=== PATIENT | male | born 1960 | race Caucasian/White ===

== ENCOUNTER 2021-11-06 15:25 | Outpatient (CLI) | payer BC, SELFPAY ==
--- NOTE | 2021-11-06 | USCV_ITS ---
Dong Diaz Age: 61 Gender: M : 1960 Exam Date: 11/06/2021 15:46 Ordering Phys: Ale Ferro Technologist: Apollo Kee [place] [facility] [place]: Chest pain BP: 110 / 70 HR: 84 Rhythm: Sinus Technical Quality: Adequate MEASUREMENTS (Male / Female) Normal Values 2D ECHO LV Diastolic Diameter PLAX 4.9 cm 4.2 - 5.9 / 3.9 - 5.3 cm LV Systolic Diameter PLAX 3.1 cm IVS Diastolic Thickness 1.1 cm 0.6 - 1.0 / 0.6 - 0.9 cm IVS Systolic Thickness 1.5 cm LVPW Diastolic Thickness 1.2 cm 0.6 - 1.0 / 0.6 - 0.9 cm LVPW Systolic Thickness 1.3 cm LVOT Diameter 2.1 cm LV Ejection Fraction 2D Teich 66.5 % LV Ejection Fraction MOD 2C 57.4 % LV Ejection Fraction 2C AL 57.8 % LA Diameter 4.6 cm LA Width 5.9 cm LA Height 6.0 cm RA Width 4.6 cm RA Height 5.5 cm Aorta at Sinotubular Diameter 2.3 cm M-MODE Aortic Annulus Diameter 3.0 cm LA Ao Ratio MM 1.7 DOPPLER AV Peak Velocity 246.0 cm/s LVOT Peak Velocity 124.7 cm/s AV Area Cont Eq vti 1.8 cm squared AV Area Cont Eq pk 1.8 cm squared MV Area PHT 5.0 cm squared Mitral E to A Ratio 0.9 MV E' Velocity 65.0 cm/s Mitral E to MV E' Ratio 14.6 Mitral E to LV E' Lateral Ratio 15.7 Mitral E to LV E' Septal Ratio 13.6 TR Peak Velocity 158.0 cm/s TR Peak Gradient 10.0 mmHg TV Peak E Velocity 106.0 cm/s Right Atrial Pressure 3.0 mmHg Pulmonary Artery Systolic Pressu 13.0 mmHg FINDINGS Left Ventricle Normal left ventricular cavity size. Normal left ventricular wall thickness. Normal left ventricular systolic function. Left ventricular ejection fraction is estimated at 60-65 %. No regional wall motion abnormalities. Grade II diastolic dysfunction, moderately elevated filling pressures. Right Ventricle Normal right ventricular size and systolic function. Right ventricular systolic pressure 13 mmHg. Right Atrium Normal right atrial size. Left Atrium Mildly increased left atrial size. Mitral Valve Moderate mitral annular calcification. No mitral valve stenosis. No mitral valve regurgitation. Aortic Valve Moderately thickened and calcified aortic valve. Mild aortic valve stenosis peak velocity 2.7 m/s, peak gradient 28 mmHg, mean gradient 15 mmHg, EILEEN 1.8 cm squared. Trace aortic valve regurgitation. Tricuspid Valve Thickened tricuspid valve. Tricuspid valve stenosis. Trace tricuspid valve regurgitation. Pulmonic Valve Structurally normal pulmonic valve. No pulmonary valve stenosis. Trace pulmonary valve regurgitation. Pericardium No pericardial effusion. Aorta Normal-sized aortic root. Plaque seen in the aorta. CONCLUSIONS 1. Normal left ventricular cavity size, wall thickness and systolic function. Left ventricular ejection fraction is estimated at 60-65 %. No regional wall motion abnormalities. Grade II diastolic dysfunction, moderately elevated filling pressures. 2. Normal right ventricular size and systolic function. 3. Mild aortic valve stenosis peak velocity 2.7 m/s, peak gradient 28 mmHg, mean gradient 15 mmHg, EILEEN 1.8 cm squared. 4. Trace aortic valve regurgitation. 5. No prior similar studies to compare. Lolly Rizzo MD (Electronically Signed) Final Date: 08 Nov 2021 18:09 S
== END 2021-11-06 15:26 | disposition home or self-care (01) ==
LOC: RAD 15:32
PROVIDERS: PCP Nurse Practitioner Family; Visit Provider Registered Nurse
DX: K76.6 Portal hypertension (principal); K75.81 Nonalcoholic steatohepatitis (NASH); R60.0 Localized edema
CPT/HCPCS: 93306

== ENCOUNTER → 2021-11-27 11:29 | Outpatient (BNVA) | payer BC, SELFPAY | PROVIDERS: PCP Nurse Practitioner Family; Visit Provider Internal Medicine | DX: K75.81 Nonalcoholic steatohepatitis (NASH) (principal); K74.60 Unspecified cirrhosis of liver | CPT/HCPCS: 80053; 80061; 84443; 85025; 85049; 85384; 85610; 85730 ==

== ENCOUNTER → 2021-12-31 13:32 | Outpatient (BNVA) | payer BC, SELFPAY | PROVIDERS: PCP Nurse Practitioner Family; Visit Provider Internal Medicine | DX: D64.9 Anemia, unspecified (principal); E78.5 Hyperlipidemia, unspecified; K74.60 Unspecified cirrhosis of liver; K75.81 Nonalcoholic steatohepatitis (NASH) | CPT/HCPCS: 82607; 82746; 83550; 85025 ==

== ENCOUNTER → 2022-02-12 15:37 | Outpatient (BNVA) | payer BC, OTHER, SELFPAY | PROVIDERS: PCP Nurse Practitioner Family; Visit Provider Internal Medicine | DX: D64.9 Anemia, unspecified (principal); K74.60 Unspecified cirrhosis of liver; K75.81 Nonalcoholic steatohepatitis (NASH); E11.9 Type 2 diabetes mellitus without complications | CPT/HCPCS: 85025 ==

== ENCOUNTER → 2022-05-08 16:39 | Outpatient (BNVA) | payer OTHER, SELFPAY | PROVIDERS: PCP Nurse Practitioner Family; Visit Provider Nurse Practitioner Family | DX: E78.5 Hyperlipidemia, unspecified (principal); K74.60 Unspecified cirrhosis of liver; N18.9 Chronic kidney disease, unspecified; E11.9 Type 2 diabetes mellitus without complications | CPT/HCPCS: 80053; 80061; 83036; 85025 ==

== ENCOUNTER → 2022-08-08 13:25 | Outpatient (BNVA) | payer OTHER, SELFPAY | PROVIDERS: PCP Nurse Practitioner Family; Visit Provider Nurse Practitioner Family | DX: D69.6 Thrombocytopenia, unspecified (principal); K74.60 Unspecified cirrhosis of liver | CPT/HCPCS: 80053; 85025 ==

== ENCOUNTER → 2022-08-21 16:52 | Outpatient (BNVA) | payer OTHER, SELFPAY | PROVIDERS: PCP Nurse Practitioner Family; Visit Provider Nurse Practitioner Family | DX: E11.9 Type 2 diabetes mellitus without complications (principal); I10 Essential (primary) hypertension; K74.60 Unspecified cirrhosis of liver | CPT/HCPCS: 83036 ==

== ENCOUNTER → 2022-10-01 16:18 | Outpatient (BNVA) | payer OTHER, SELFPAY | PROVIDERS: PCP Nurse Practitioner Family; Visit Provider Nurse Practitioner Family | DX: I10 Essential (primary) hypertension (principal); N39.0 Urinary tract infection, site not specified | CPT/HCPCS: 81000 ==

== ENCOUNTER → 2022-10-07 16:06 | Outpatient (BNVA) | payer OTHER, SELFPAY | PROVIDERS: PCP Nurse Practitioner Family; Visit Provider Nurse Practitioner Family | DX: E11.9 Type 2 diabetes mellitus without complications (principal); E78.5 Hyperlipidemia, unspecified; K74.60 Unspecified cirrhosis of liver | CPT/HCPCS: 80053; 80061; 83036 ==

== ENCOUNTER 2022-11-06 08:54 | Day surgery (SDC) | payer OTHER, SELFPAY ==
[2022-11-05 09:59] VITALS: BMI 39.5
[2022-11-06 09:07] VITALS: BP 131/72; PULSE 74; RESP 18; TEMP 36.6; O2SAT 98
--- NOTE | 2022-11-06 09:14 | ANES.PREANE2 ---
Pre-Anesthetic Assessment Height/Weight: Height 1.85 m Weight 136.078 kg Temp Pulse Resp BP Pulse Ox O2 Del Method 97.9 F 74 18 131/72 98 Room Air 11/06/22 09:07 11/06/22 09:07 11/06/22 09:07 11/06/22 09:07 11/06/22 09:07 11/06/22 09:07 Preop Diagnosis: screening Operation Date: 11/06/22 10:00 Proposed Procedures p 88296 egd, 27054 colon K74.60,I85.10 Z12.11(Not Applicable) - DO marilu Jj Colonoscopy(Not Applicable) - Huey Leonard DO Familial anesthetic complications: none Was Beta Eyad taken within 24 hours: N/A Was Clonidine taken within 24 hours: N/A Last intake: Intake Last Liquid Date 11/06/22 Last Liquid Time 03:00 Last Solid Date 11/04/22 Last Solid Time 21:30 Social No alcohol and No tobacco Exam alert, oriented x 3, clear to auscultation bilaterally and regular rate & rhythm Airway Submandibular: within normal limits Cervical ROM: within normal limits Mallampati: Class III Dentition: full History/ROS No significant history except as noted Pulmonary None reported CV/HEM Hypertension Chronic Renal Failure CKD stage 3 Hepatic Cirrhosis Vivas 2/2, portal htn GI None reported Metabolic Diabetes Mellitus, Hyperlipidemia and Morbid Obesity [facility] None reported Neuropsych None reported Anesthetic Plan ASA status: 3 Anesthesia: Anesthesia Evaluation and MAC Risk of > 500 ml blood loss (7ml/kg in children): No Medications/Allergies Home Medications Medication Instructions Recorded Confirmed Last Taken Type cholecalciferol (vitamin D3) 50 50 mcg PO DAILY 11/13/21 11/05/22 11/05/22 History mcg (2,000 unit) capsule metformin 1,000 mg tablet 1,000 mg PO BID 11/13/21 11/05/22 11/05/22 History sildenafil 100 mg tablet 100 mg PO DAILY PRN Sexual Activity 11/13/21 11/05/22 Unknown History ferrous sulfate 325 mg (65 mg 325 mg PO DAILY 11/27/21 11/05/22 11/05/22 History iron) tablet melatonin 5 mg capsule 10 mg PO PRN 11/27/21 11/05/22 11/05/22 History dulaglutide 3 mg/0.5 mL 3 mg (0.5 mL) SUBCUT .weekly #2 mL 08/21/22 11/05/22 11/01/22 Rx subcutaneous pen injector (Trulicity) losartan 50 mg tablet 25 mg PO DAILY #90 tabs 08/23/22 11/05/22 11/05/22 Rx Farxiga 10 mg PO DAILY 11/05/22 11/05/22 11/05/22 History insulin degludec 200 unit/mL (3 90 unit SUBCUT BID 11/05/22 11/05/22 11/05/22 09:00 History mL) subcutaneous pen mecobalamin (vitamin B12) 1,000 1,000 mcg PO DAILY 11/05/22 11/05/22 11/05/22 History mcg chewable tablet (B12 Active) pravastatin 10 mg tablet 10 mg PO DAILY 11/05/22 11/05/22 11/05/22 History Allergies Allergy/AdvReac Type Severity Reaction Status Date / Time No Known Allergies Allergy Verified 11/05/22 09:52 [facility] Anesthesia Medical History (Updated 10/15/22 @ 12:27 by THEODORE Bledsoe) Chronic cough Chronic kidney disease Diabetes mellitus Elevated liver enzymes Hyperlipidemia Hypertriglyceridemia Low vitamin D level Portal hypertension Surgical History History of esophageal surgery S/P LASIK surgery S/P sinus surgery S/P tonsillectomy Family History Unknown No problems noted. Social History Smoking and tobacco status: never smoked Alcohol intake: never Substance/Drug Use: never Adopted: Yes (Biological mother's family has hx of hypertension) Data Anesthesia Cardiac Studies: Echocardiogram 11/06/21
[2022-11-06] MEDS: sodium chloride 0.9% 1,000 ML 30 ML IV ×2 (09:18→11:00)
--- NOTE | 2022-11-06 09:18 | PM.HP ---
Providers/Chief Complaint Primary Care Provider: THEODORE Dailey Chief Complaint: K74.60, Z12.11, I85.10 History of Present Illness Dong Diaz is a 62 year old male here for EGD and colonoscopy Medications/Allergies Home Medications Medication Instructions Recorded Confirmed Last Taken Type cholecalciferol (vitamin D3) 50 50 mcg PO DAILY 11/13/21 11/05/22 11/05/22 History mcg (2,000 unit) capsule metformin 1,000 mg tablet 1,000 mg PO BID 11/13/21 11/05/22 11/05/22 History sildenafil 100 mg tablet 100 mg PO DAILY PRN Sexual Activity 11/13/21 11/05/22 Unknown History ferrous sulfate 325 mg (65 mg 325 mg PO DAILY 11/27/21 11/05/22 11/05/22 History iron) tablet melatonin 5 mg capsule 10 mg PO PRN 11/27/21 11/05/22 11/05/22 History dulaglutide 3 mg/0.5 mL 3 mg (0.5 mL) SUBCUT .weekly #2 mL 08/21/22 11/05/22 11/01/22 Rx subcutaneous pen injector (Trulicity) losartan 50 mg tablet 25 mg PO DAILY #90 tabs 08/23/22 11/05/22 11/05/22 Rx Farxiga 10 mg PO DAILY 11/05/22 11/05/22 11/05/22 History insulin degludec 200 unit/mL (3 90 unit SUBCUT BID 11/05/22 11/05/22 11/05/22 09:00 History mL) subcutaneous pen mecobalamin (vitamin B12) 1,000 1,000 mcg PO DAILY 11/05/22 11/05/22 11/05/22 History mcg chewable tablet (B12 Active) pravastatin 10 mg tablet 10 mg PO DAILY 11/05/22 11/05/22 11/05/22 History Allergies Allergy/AdvReac Type Severity Reaction Status Date / Time No Known Allergies Allergy Verified 11/05/22 09:52 PFSH Acute PFSH: Medical History (Updated 10/15/22 @ 12:27 by THEODORE Bledsoe) Chronic cough Chronic kidney disease Diabetes mellitus Elevated liver enzymes Hyperlipidemia Hypertriglyceridemia Low vitamin D level Portal hypertension Surgical History History of esophageal surgery S/P LASIK surgery S/P sinus surgery S/P tonsillectomy Family History Unknown No problems noted. Social History Smoking and tobacco status: never smoked Alcohol intake: never Substance/Drug Use: never Adopted: Yes (Biological mother's family has hx of hypertension) Vitals/I&O/Wt Last Vital Signs Temp 97.9 F 11/06/22 09:07 Pulse 74 11/06/22 09:07 Resp 18 11/06/22 09:07 BP 131/72 11/06/22 09:07 Pulse Ox 98 11/06/22 09:07 O2 Del Method Room Air 11/06/22 09:07 Weight last 48 hrs Weight 300 lb A&P Assessment and plan (1) Colon cancer screening: (2) XIE (nonalcoholic steatohepatitis): (3) Cirrhosis of liver: (4) Esophageal varices in cirrhosis: Plan EGD and colonoscopy Attestations Medical Necessity Statement*: Home Coding Level of Care Code Acute Code for Chg Fwd Diagnoses Colon cancer screening Z12.11 XIE (nonalcoholic steatohepatitis) K75.81 Cirrhosis of liver K74.60 Esophageal varices in cirrhosis K74.60; I85.10
[2022-11-06 09:41] LABS: Glucose Point of Care 94 mg/dL (70-110)
[2022-11-06 09:41] LABS: Glucose Point of Care 73 mg/dL (70-110)
[2022-11-06] MEDS: EPINEPHrine 1 mg/mL INJ XX (09:42)
[2022-11-06 10:45] VITALS: BP 157/82; PULSE 70; RESP 16; TEMP 36.1; O2SAT 99
[2022-11-06 10:59] VITALS: BP 115/70; PULSE 65; RESP 16; O2SAT 96
[2022-11-06 11:09] VITALS: BP 132/78; PULSE 70; RESP 16; O2SAT 96
[2022-11-06 11:11] LABS: Glucose Point of Care 75 mg/dL (70-110)
[2022-11-06 11:11] LABS: Glucose Point of Care 95 mg/dL (70-110)
--- NOTE | 2022-11-06 11:41 | PC.NURSE ---
Discharge instructions were discussed with pt prior to discharge, informed pt some bleeding is normal however if he has significant bleeding to come to ED and err on the side of caution if he is unsure how much is 'significant', pt voiced understanding.
--- NOTE | 2022-11-06 14:04 | ANE.PACU2 ---
Inpatient post-anesthesia follow up: Airway intact: Yes Vital signs: Temperature 97 F Pulse Rate 70 Respiratory Rate 16 Blood Pressure 132/78 Pulse Oximetry 96 Oxygen Delivery Me thod Room Air Oxygen Flow Rate Fraction of Inspir ed Oxygen Hydration adequate: Yes Nausea and vomiting: No Pain level: 1 Mental status: Baseline
== END 2022-11-06 11:30 | disposition home or self-care (01) ==
PROVIDERS: PCP Nurse Practitioner Family; Visit Provider Surgery
PROC: 0DJ08ZZ Inspection of Upper Intestinal Tract, Via Natural or Artificial Opening Endoscopic (ICD-10-PCS; CPT 43235; principal; 2022-11-06 10:00)
PROC: 0DJD8ZZ Inspection of Lower Intestinal Tract, Via Natural or Artificial Opening Endoscopic (ICD-10-PCS; CPT 45378; 2022-11-06 10:00)
DX: Z12.11 Encounter for screening for malignant neoplasm of colon (principal); D12.2 Benign neoplasm of ascending colon; D12.4 Benign neoplasm of descending colon; D12.5 Benign neoplasm of sigmoid colon; K76.6 Portal hypertension; I85.10 Secondary esophageal varices without bleeding; K74.60 Unspecified cirrhosis of liver; K75.81 Nonalcoholic steatohepatitis (NASH); K29.50 Unspecified chronic gastritis without bleeding; I12.9 Hypertensive chronic kidney disease with stage 1 through stage 4 chronic kidney disease, or unspecified chronic kidney disease; N18.30 Chronic kidney disease, stage 3 unspecified; E11.22 Type 2 diabetes mellitus with diabetic chronic kidney disease; E78.5 Hyperlipidemia, unspecified; E66.01 Morbid (severe) obesity due to excess calories; Z79.84 Long term (current) use of oral hypoglycemic drugs; Z79.4 Long term (current) use of insulin; Z79.899 Other long term (current) drug therapy
CPT/HCPCS: 36416; 43239; 43255; 45381; 45382; 45385; 82962; 88305; 88342; J0171; J2704; J7030

== ENCOUNTER → 2022-11-21 13:37 | Outpatient (BNVA) | payer OTHER, SELFPAY | PROVIDERS: PCP Nurse Practitioner Family; Visit Provider Nurse Practitioner Family | DX: I10 Essential (primary) hypertension (principal); E11.9 Type 2 diabetes mellitus without complications; K74.60 Unspecified cirrhosis of liver; E66.9 Obesity, unspecified | CPT/HCPCS: 80053; 83036; 85025 ==

== ENCOUNTER → 2022-12-31 14:23 | Outpatient (BNVA) | payer OTHER, SELFPAY | PROVIDERS: PCP Nurse Practitioner Family; Visit Provider Internal Medicine | DX: R07.9 Chest pain, unspecified (principal); E11.9 Type 2 diabetes mellitus without complications; Z01.818 Encounter for other preprocedural examination; I10 Essential (primary) hypertension; E78.5 Hyperlipidemia, unspecified | CPT/HCPCS: 93005 ==

== ENCOUNTER 2023-01-15 06:31 | Day surgery (SDC) | payer OTHER, SELFPAY ==
[2023-01-13 10:58] VITALS: BMI 38.2
[2023-01-15] VITALS (10 sets, daily range): BP systolic 101–130; BP diastolic 64–86; PULSE 81–90; RESP 16–18; TEMP 36.2–36.4; O2SAT 90–96
[2023-01-15] MEDS: sodium chloride 0.9% 1,000 ML 30 ML IV (07:02)
--- NOTE | 2023-01-15 07:02 | ANES.PREANE2 ---
Pre-Anesthetic Assessment Height/Weight: Height 1.85 m Weight 131.542 kg Temp Pulse Resp BP Pulse Ox O2 Del Method 97.6 F 81 18 130/84 94 Room Air 01/15/23 06:55 01/15/23 06:55 01/15/23 06:55 01/15/23 06:55 01/15/23 06:55 01/15/23 06:55 Operation Date: 01/15/23 07:45 Proposed Procedures p Colonoscopy 65656,K63.5(Not Applicable) - Huey Leonard DO Familial anesthetic complications: none Was Beta Eyad taken within 24 hours: N/A Was Clonidine taken within 24 hours: N/A Last intake: Intake Last Liquid Date 01/14/23 Last Liquid Time 22:00 Last Solid Date 01/13/23 Last Solid Time 20:00 Social No alcohol and No tobacco Exam alert and oriented x 3 Airway Submandibular: within normal limits Cervical ROM: within normal limits Mallampati: Class II Dentition: full Pulmonary Cough CV/HEM Hypertension None reported Hepatic Cirrhosis GI None reported Metabolic Diabetes Mellitus, Hyperlipidemia and Morbid Obesity Anesthetic Plan ASA status: 3 Anesthesia: Anesthesia Evaluation, General and MAC Medications/Allergies Home Medications Medication Instructions Recorded Confirmed Last Taken Type cholecalciferol (vitamin D3) 50 50 mcg PO DAILY 11/13/21 01/15/23 01/14/23 History mcg (2,000 unit) capsule sildenafil 100 mg tablet 100 mg PO DAILY PRN Sexual Activity 11/13/21 01/15/23 Unknown History ferrous sulfate 325 mg (65 mg 325 mg PO DAILY 11/27/21 01/15/23 01/14/23 History iron) tablet melatonin 5 mg capsule 10 mg PO PRN PRN Sleep 11/27/21 01/15/23 01/14/23 History losartan 50 mg tablet 25 mg PO DAILY #90 tabs 08/23/22 01/15/23 01/14/23 Rx mecobalamin (vitamin B12) 1,000 1,000 mcg PO DAILY 11/05/22 01/15/23 01/14/23 History mcg chewable tablet (B12 Active) dulaglutide 3 mg/0.5 mL 3 mg SUBCUT .Weekly 12/31/22 01/15/23 01/12/23 History subcutaneous pen injector (Trulicity) furosemide 20 mg tablet 20 mg PO DAILY PRN weight gain 12/31/22 01/15/23 01/14/23 History insulin degludec 200 unit/mL (3 90 unit SUBCUT DAILY 12/31/22 01/15/23 01/14/23 History mL) subcutaneous pen (Tresiba FlexTouch U-200 insulin) metformin 1,000 mg tablet 250 mg PO DIRECTED 12/31/22 01/15/23 01/14/23 History spironolactone 25 mg tablet 25 mg PO DAILY PRN weight gain 12/31/22 01/15/23 01/14/23 History dapagliflozin 10 mg tablet 10 mg PO DAILY 01/13/23 01/15/23 01/14/23 History (Farxiga) pravastatin 10 mg tablet 10 mg PO DAILY 01/13/23 01/15/23 01/14/23 History Allergies Allergy/AdvReac Type Severity Reaction Status Date / Time No Known Allergies Allergy Verified 01/15/23 06:48 [facility] Anesthesia Medical History Chronic cough Chronic kidney disease Diabetes mellitus Elevated liver enzymes Hyperlipidemia Hypertriglyceridemia Low vitamin D level Portal hypertension Surgical History History of esophageal surgery S/P LASIK surgery S/P sinus surgery S/P tonsillectomy Family History Unknown No problems noted. Social History Smoking and tobacco status: never smoked Alcohol intake: never Substance/Drug Use: never Adopted: Yes (Biological mother's family has hx of hypertension) Data Anesthesia Cardiac Studies: Echocardiogram 11/06/21
[2023-01-15 07:07] LABS: Glucose Point of Care 98 mg/dL (70-110)
--- NOTE | 2023-01-15 07:57 | PM.HP ---
Providers/Chief Complaint Primary Care Provider: THEODORE Dailey Chief Complaint: K63.5 History of Present Illness Dong Diaz is a 62 year old male here for colonoscopy. He had a colonoscopy 6 weeks ago which identified several large colon polyps including a very large 1 in the sigmoid colon that was inked and a small polyp in the ascending colon which the pathologist read as high-grade dysplasia. This is a close follow-up repeat colonoscopy Medications/Allergies Home Medications Medication Instructions Recorded Confirmed Last Taken Type cholecalciferol (vitamin D3) 50 50 mcg PO DAILY 11/13/21 01/15/23 01/14/23 History mcg (2,000 unit) capsule sildenafil 100 mg tablet 100 mg PO DAILY PRN Sexual Activity 11/13/21 01/15/23 Unknown History ferrous sulfate 325 mg (65 mg 325 mg PO DAILY 11/27/21 01/15/23 01/14/23 History iron) tablet melatonin 5 mg capsule 10 mg PO PRN PRN Sleep 11/27/21 01/15/23 01/14/23 History losartan 50 mg tablet 25 mg PO DAILY #90 tabs 08/23/22 01/15/23 01/14/23 Rx mecobalamin (vitamin B12) 1,000 1,000 mcg PO DAILY 11/05/22 01/15/23 01/14/23 History mcg chewable tablet (B12 Active) dulaglutide 3 mg/0.5 mL 3 mg SUBCUT .Weekly 12/31/22 01/15/23 01/12/23 History subcutaneous pen injector (Trulicity) furosemide 20 mg tablet 20 mg PO DAILY PRN weight gain 12/31/22 01/15/23 01/14/23 History insulin degludec 200 unit/mL (3 90 unit SUBCUT DAILY 12/31/22 01/15/23 01/14/23 History mL) subcutaneous pen (Tresiba FlexTouch U-200 insulin) metformin 1,000 mg tablet 250 mg PO DIRECTED 12/31/22 01/15/23 01/14/23 History spironolactone 25 mg tablet 25 mg PO DAILY PRN weight gain 12/31/22 01/15/23 01/14/23 History dapagliflozin 10 mg tablet 10 mg PO DAILY 01/13/23 01/15/23 01/14/23 History (Farxiga) pravastatin 10 mg tablet 10 mg PO DAILY 01/13/23 01/15/23 01/14/23 History Allergies Allergy/AdvReac Type Severity Reaction Status Date / Time No Known Allergies Allergy Verified 01/15/23 06:48 PFSH Acute PFSH: Medical History Chronic cough Chronic kidney disease Diabetes mellitus Elevated liver enzymes Hyperlipidemia Hypertriglyceridemia Low vitamin D level Portal hypertension Surgical History History of esophageal surgery S/P LASIK surgery S/P sinus surgery S/P tonsillectomy Family History Unknown No problems noted. Social History Smoking and tobacco status: never smoked Alcohol intake: never Substance/Drug Use: never Adopted: Yes (Biological mother's family has hx of hypertension) Vitals/I&O/Wt Last Vital Signs Temp 97.6 F 01/15/23 06:55 Pulse 81 01/15/23 06:55 Resp 18 01/15/23 06:55 BP 130/84 01/15/23 06:55 Pulse Ox 94 01/15/23 06:55 O2 Del Method Room Air 01/15/23 06:55 Weight last 48 hrs Weight 290 lb A&P Assessment and plan (1) Colon polyps: Plan Colonoscopy The risks and benefits of the procedure, including bleeding, infection, intestinal perforation requiring surgery, missed lesion were explained to the patient. The patient is understanding of the risks and wishes to proceed. Attestations Medical Necessity Statement*: Home Coding Level of Care Code Acute Code for Chg Fwd Diagnoses Colon polyps K63.5
--- NOTE | 2023-01-15 09:00 | ANE.PACU2 ---
Inpatient post-anesthesia follow up: Airway intact: Yes Vital signs: Temperature 97.2 F Pulse Rate 82 Respiratory Rate 16 Blood Pressure 111/75 Pulse Oximetry 94 Oxygen Delivery Me thod Room Air Oxygen Flow Rate 3 Fraction of Inspir ed Oxygen Hydration adequate: Yes Nausea and vomiting: No Pain level: 1
== END 2023-01-15 09:45 | disposition home or self-care (01) ==
PROVIDERS: PCP Nurse Practitioner Family; Visit Provider Surgery
PROC: 0DJD8ZZ Inspection of Lower Intestinal Tract, Via Natural or Artificial Opening Endoscopic (ICD-10-PCS; CPT 45378; principal; 2023-01-15 07:45)
DX: K74.60 Unspecified cirrhosis of liver (principal); I85.10 Secondary esophageal varices without bleeding; D12.0 Benign neoplasm of cecum; D12.3 Benign neoplasm of transverse colon; D12.4 Benign neoplasm of descending colon; I10 Essential (primary) hypertension; E11.9 Type 2 diabetes mellitus without complications; E78.5 Hyperlipidemia, unspecified; E66.01 Morbid (severe) obesity due to excess calories; Z68.38 Body mass index [BMI] 38.0-38.9, adult; Z79.4 Long term (current) use of insulin; Z79.84 Long term (current) use of oral hypoglycemic drugs; K64.8 Other hemorrhoids
CPT/HCPCS: 36416; 45385; 82962; 88305; J0330; J2704; J3010; J7030

== ENCOUNTER 2023-01-27 11:30 | Outpatient (CLI) | payer OTHER, SELFPAY ==
--- NOTE | 2023-01-27 12:00 | USCV_ITS ---
Dong Diaz Age: 62 Gender: M : 1960 Exam Date: 01/27/2023 12:17 Ordering Phys: Krish Garner M.D ([email or web address]) Technologist: Apollo Kee Exam Location: [facility] Indication: dyspnea BP: 132 / 72 HR: 83 Rhythm: Sinus Technical Quality: Adequate MEASUREMENTS (Male / Female) Normal Values 2D ECHO LV Diastolic Diameter PLAX 4.1 cm 4.2 - 5.9 / 3.9 - 5.3 cm LV Systolic Diameter PLAX 2.1 cm IVS Diastolic Thickness 1.6 cm 0.6 - 1.0 / 0.6 - 0.9 cm IVS Systolic Thickness 1.9 cm LVPW Diastolic Thickness 1.4 cm 0.6 - 1.0 / 0.6 - 0.9 cm LVPW Systolic Thickness 1.6 cm LVOT Diameter 2.0 cm LV Ejection Fraction 2D Teich 81.0 % LV Ejection Fraction MOD 2C 72.1 % LV Ejection Fraction 2C AL 72.8 % LA Diameter 3.9 cm M-MODE RV Diastolic Diameter MM 3.5 cm Aortic Annulus Diameter 3.6 cm LA Ao Ratio MM 1.1 MV E Point Septal Separation 2.3 cm DOPPLER AV Peak Velocity 321.3 cm/s LVOT Peak Velocity 140.0 cm/s AV Area Cont Eq vti 1.6 cm squared AV Area Cont Eq pk 1.4 cm squared MV Area PHT 2.4 cm squared Mitral E to A Ratio 0.9 MV E' Velocity 89.8 cm/s Mitral E to MV E' Ratio 19.6 Mitral E to LV E' Lateral Ratio 24.1 Mitral E to LV E' Septal Ratio 16.8 TR Peak Velocity 192.8 cm/s TR Peak Gradient 14.9 mmHg TV Peak E Velocity 82.0 cm/s Right Atrial Pressure 3.0 mmHg Pulmonary Artery Systolic Pressu 17.9 mmHg RV Acceleration Time 0.1 s FINDINGS Left Ventricle Left ventricle is normal. LV systolic function is normal with EF of 60-65%. No regional wall motion abnormalities. Grade 1 diastolic dysfunction Right Ventricle Normal in size and function Right Atrium Normal in size Left Atrium Normal in size Mitral Valve Moderate mitral annular calcification is seen. Mild mitral regurgitation. Mean gradient across mitral valve is 5.4 mmHg. This is consistent with mild mitral stenosis. Aortic Valve Aortic valve is thickened and calcified. Mild to moderate aortic stenosis with aortic valve area of 1.74 cm. Mean gradient across aortic valve of 21.4 mmHg. Tricuspid Valve Mild tricuspid regurgitation. Insufficient TR jet to calculate RVSP. Pulmonic Valve Not well-visualized Pericardium Normal Aorta Normal in size IVC Not well visualized CONCLUSIONS LV systolic function is normal with EF of 60 to 65%. Grade 1 diastolic dysfunction. Moderate mitral annular calcification is seen. Mild mitral regurgitation. Mild mitral stenosis. Moderate aortic stenosis is seen. Mild tricuspid regurgitation. Compared to prior echocardiogram from 2021, patient now has mild mitral stenosis and aortic stenosis has slightly progressed and is mild to moderate now. Krish Garner MD (Electronically Signed) Final Date: 05 February 2023 11:47 S
== END 2023-01-27 11:31 | disposition home or self-care (01) ==
PROVIDERS: PCP Nurse Practitioner Family; Visit Provider Internal Medicine
DX: Z01.818 Encounter for other preprocedural examination (principal); I10 Essential (primary) hypertension; I05.0 Rheumatic mitral stenosis; I07.1 Rheumatic tricuspid insufficiency
CPT/HCPCS: 93306

== ENCOUNTER 2023-02-05 07:13 | Outpatient (CLI) | payer OTHER, SELFPAY ==
[2023-02-05 07:24] VITALS: BMI 38.4
--- NOTE | 2023-02-05 07:43 | NMCV_ITS ---
NM nila perf SPECT r/s* [id number] Dong Diaz Age: 62 Gender: M : 1960 Exam Date: 02/05/2023 07:43 Ordering Phys: Krish Garner M.D ([email or web address]) Technologist: RAYMOND Brandon Exam Location: [facility] Indications: HYPERTENSION, PREOP GASTRIC BYPASS SURG STAT READ DR KEVIN REPORT BY ALMAZ 02/06/23 STRESS TEST Please see separate stress test report in [facility] for full findings IMAGE PROTOCOL Rest/Stress 1 Exercise Day Radiopharmaceutical Dose (mCi) Administration Site Administered by Rest: Tc-99m 10.8 IV RAYMOND Buck Sestaminohemi Stress:Tc-99m 33.0 IV RAYMOND Buck Sestaminohemi Rest: 05-Feb-2023 60 Discovery 630 Stress: 05-Feb-2023 15 Discovery 630 Radiopharmaceutical was injected at 85 % maximum heart rate. Images obtained in supine and prone position. SPECT RESULTS Technical Quality: Excellent Raw Data Analysis: Normal Image Corrections: No attenuation or motion correction applied Summed Stress Score: 0 Summed Rest Score: 0 Summed Difference Score: 0 PERFUSION FINDINGS SPECT images demonstrate homogeneous tracer distribution throughout the myocardium. FUNCTIONAL RESULTS (calculated via Gated SPECT) Stress Image LV EF (%): 70 Stress EDV (mL):149 TID: 1.01 Stress ESV (mL):44 FUNCTIONAL FINDINGS: There is normal left ventricular systolic function. IMPRESSIONS 1. Normal myocardial perfusion imaging with no evidence of ischemia 2. LV systolic function is normal Krish Garner MD (Electronically Signed) Final Date: 05 February 2023 10:00 S
--- NOTE | 2023-02-05 07:43 | ECG_ITS ---
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 Interpretive Statements NAME OF STUDY: EXERCISE SESTAMIBI STRESS TEST INDICATION: [Surgical Clearance] EXERCISE DATA: The patient was exercised by Judd protocol. Baseline heart rate was 84 beats per minute. Baseline blood pressure was 147/81 millimeters of mercury. Target heart rate was 135 beats per minute. Maximum heart rate achieved was 141, which was 104% of the target heart rate. Maximum blood pressure was 147/81 millimeters of mercury. Total exercise time was 5 minutes and 39 seconds. Maximum METs achieved was 7. The reason for ending the test was completion of protocol. The patient complained of shortness of breath during the stress test, which then resolved at the end of the test. ELECTROCARDIOGRAM: BASELINE: Showed sinus rhythm, normal axis, no significant ST-T changes at the baseline noted. [] EXERCISE: At the peak exercise level, [] No significant ST-T changes suggestive of ischemia noted. [] RECOVERY: During the recovery period, heart rate dropped appropriately. No significant ST-T changes in the recovery suggestive of ischemia noted. [] CONCLUSION: 1. Exercise capacity is fair 2. Heart rate response was appropriate 3. Blood pressure response was appropriate 4. Symptoms not suggestive of ischemia. 5. Electrocardiogram portion of the stress test was not suggestive of ischemia. 6. Nuclear scan will be documented separately. Electronically Signed On 02-05-2023 10:06:23 CDT by Krish Garner M.D. [id number]
[2023-02-05 09:12] VITALS: BP 133/84; PULSE 92
== END 2023-02-05 07:14 | disposition home or self-care (01) ==
LOC: CDL 07:18
PROVIDERS: PCP Nurse Practitioner Family; Visit Provider Internal Medicine
DX: I10 Essential (primary) hypertension (principal); Z01.818 Encounter for other preprocedural examination
CPT/HCPCS: 36415; 78452; 93017; A9500

== ENCOUNTER → 2023-03-24 15:44 | Outpatient (BNVA) | payer OTHER, SELFPAY | PROVIDERS: PCP Nurse Practitioner Family; Visit Provider Nurse Practitioner Family | DX: K74.60 Unspecified cirrhosis of liver (principal); I10 Essential (primary) hypertension; E11.9 Type 2 diabetes mellitus without complications; K75.81 Nonalcoholic steatohepatitis (NASH) | CPT/HCPCS: 80053; 83036; 85025 ==

== ENCOUNTER 2023-11-10 11:11 | Day surgery (SDC) | payer OTHER, SELFPAY ==
[2023-11-10 11:31] VITALS: BMI 40.8
--- NOTE | 2023-11-10 11:33 | US_ITS ---
WS: [id number] ULTRASOUND-GUIDED PARACENTESIS CLINICAL INFORMATION: cirrhosis of liver with ascites COMPARISON: None. Procedure Informed consent: The risks, benefits, and alternatives of the procedure were discussed with the caterina ent. Verbal and written consent was obtained. Timeout: A timeout was performed to confirm the correct patient, procedure, and site. Preparation: A suitable skin site was identified. The patient was prepped and draped in usual sterile fashion. Lidocaine 1% was used for local anesthesia. 2 attempts in the LEFT lower quadrant inferiorl y resulted in a small amount of bloody fluid drainage with clot occluding the catheters. Subsequently a site in the LEFT mid abdomen was selected with successful continuous drainage. Catheter: 4 Khmer One-step Yueh catheter. Side: LEFT lower quadrant. Fluid Volume: 10,000 ml Color: Bloody serous DISPOSITION: Discarded safely. Complications: None. Patient disposition: Discharged from the department in stable condition. US/US paracentesis abd w [id number] IMPRESSION: Uncomplicated ultrasound-guided paracentesis. Removal of 10,000 cc bloody serous ascites
[2023-11-10 11:43] VITALS: BP 133/77; PULSE 84; RESP 18; TEMP 36.6; O2SAT 97
[2023-11-10 12:58] LABS: Mononuclear %, Pleural Fluid 95 %; Polynuclear Cells, Pleural % 5 %
[2023-11-10 13:19] LABS: Appearance, Pleural Fluid CLOUDY (CLEAR); Color, Pleural Fluid Yellow (Pale Yellow); PATH Referal YES
[2023-11-10 13:22] LABS: Cyto Order Verification No Order
[2023-11-10] MEDS: albumin 25 G/100 ML BAG 60 G IV ×2 (13:36)
== END 2023-11-10 13:55 | disposition home or self-care (01) ==
PROVIDERS: Radiology Neuroradiology; PCP Nurse Practitioner Family; Visit Provider Nurse Practitioner Family
PROC: (CPT 49082; principal; 2023-11-10 12:30)
DX: K74.60 Unspecified cirrhosis of liver (principal); R18.8 Other ascites
CPT/HCPCS: 32555; 49083; 80503; 87070; 87075; 87205; 89050; 96365; P9046

== ENCOUNTER 2023-11-25 10:48 | Day surgery (SDC) | payer OTHER, SELFPAY ==
[2023-11-25 11:08] VITALS: BP 97/61; PULSE 85; RESP 18; TEMP 36.6; O2SAT 96
[2023-11-25 11:09] VITALS: BMI 42.2
--- NOTE | 2023-11-25 11:10 | US_ITS ---
WS: [email or web address] ULTRASOUND-GUIDED PARACENTESIS CLINICAL INFORMATION: ascites COMPARISON: None. Procedure Informed consent: The risks, benefits, and alternatives of the procedure were discussed with the caterina ent. Verbal and written consent was obtained. Timeout: A timeout was performed to confirm the correct patient, procedure, and site. Preparation: A suitable skin site was identified. The patient was prepped and draped in usual sterile fashion. Lidocaine 1% was used for local anesthesia. Catheter: 4 Cambodian One-step Yueh catheter. Side: LEFT lower quadrant. Fluid Volume: 10,000 ml Color: Clear yellow DISPOSITION: Discarded safely. Complications: None. Patient disposition: Discharged from the department in stable condition. US/US paracentesis abd w [id number] IMPRESSION: Uncomplicated ultrasound-guided paracentesis. Removal of 10,000 cc
[2023-11-25] MEDS: albumin 75 G/300 ML BAG 60 G IV (12:29)
[2023-11-25 12:49] LABS: Cyto Order Verification No Order
[2023-11-25 13:06] LABS: Mononuclear %, Pleural Fluid 95 %; Polynuclear Cells, Pleural % 6 %
[2023-11-25 13:17] LABS: Appearance, Pleural Fluid CLOUDY (CLEAR); Color, Pleural Fluid Amber (Pale Yellow); PATH Referal YES
== END 2023-11-25 13:30 | disposition home or self-care (01) ==
PROVIDERS: Radiology Neuroradiology; PCP Nurse Practitioner Family; Visit Provider Nurse Practitioner Family
PROC: (CPT 49082; principal; 2023-11-25 12:00)
DX: R18.8 Other ascites (principal)
CPT/HCPCS: 49083; 80503; 89050; 96365; P9046

== ENCOUNTER → 2023-12-09 10:42 | Day surgery (SDC) | payer OTHER, SELFPAY ==
[2023-12-09 10:54] VITALS: BMI 43.9
[2023-12-09 10:58] VITALS: BP 115/69; PULSE 81; RESP 16; TEMP 36.4; O2SAT 97
--- NOTE | 2023-12-09 11:02 | US_ITS ---
WS: [id number] ULTRASOUND-GUIDED PARACENTESIS CLINICAL INFORMATION: Cirrhosis of liver with ascites COMPARISON: None. Procedure Informed consent: The risks, benefits, and alternatives of the procedure were discussed with the caterina ent. Verbal and written consent was obtained. Timeout: A timeout was performed to confirm the correct patient, procedure, and site. Preparation: A suitable skin site was identified. The patient was prepped and draped in usual sterile fashion. Lidocaine 1% was used for local anesthesia. Catheter: 4 Welsh One-step [employer] catheter. Side: RIGHT lower quadrant. Fluid Volume: 10,000 ml Color: Clear yellow DISPOSITION: Discarded safely. Complications: None. Patient disposition: Discharged from the department in stable condition. US/US paracentesis abd w [id number] IMPRESSION: Uncomplicated ultrasound-guided paracentesis. Removal of 10,000 cc
[2023-12-09 12:13] LABS: Cyto Order Verification No Order
[2023-12-09 12:18] LABS: Body Fluid Polynuclear #Cells 0.015; Body Fluid WBC 252 /uL; Monocytes # Body Fluid 0.237
[2023-12-09 12:22] LABS: Apprearance, Body Fluid CLOUDY; Color, Body Fluid PALE YELLOW; Fluid Laterality PERITONEAL FLUID; PATH Referral YES
[2023-12-09] MEDS: albumin 75 G/300 ML BAG 300 G IV (12:25)
== END ==
PROVIDERS: Radiology Neuroradiology; PCP Nurse Practitioner Family; Visit Provider Nurse Practitioner Family
PROC: (CPT 49082; principal; 2023-12-09 12:00)
DX: K74.60 Unspecified cirrhosis of liver (principal); R18.8 Other ascites
CPT/HCPCS: 49083; 80503; 87070; 87075; 87205; 89050; 96365; P9046

== ENCOUNTER 2024-02-05 11:08 | Day surgery (SDC) | payer BC, SELFPAY ==
--- NOTE | 2024-02-05 11:33 | US_ITS ---
WS: [id number] ULTRASOUND-GUIDED THERAPEUTIC AND DIAGNOSTIC PARACENTESIS Procedure, risks, and complications have been explained to the patient. Consent is obtained. Utilizing aseptic technique and 1% buffered lidocaine, a small dermatome was made through which a 5 F rench Yueh catheter was inserted. Approximately 10,000 ml of clear peritoneal fluid was obtained wit hout difficulty. No complications encountered. US/US paracentesis abd w [id number] IMPRESSION: Uncomplicated paracentesis yielding 10,000 ml of peritoneal fluid.
[2024-02-05 11:40] VITALS: BP 115/68; PULSE 90; RESP 18; TEMP 37.1; O2SAT 97
[2024-02-05 11:46] VITALS: BMI 42.2
[2024-02-05 12:43] LABS: Cyto Order Verification No Order
[2024-02-05 12:45] LABS: Apprearance, Body Fluid CLOUDY
[2024-02-05 12:46] LABS: Color, Body Fluid AMBER; Fluid Laterality PERITONEAL FLUID; PATH Referral YES
[2024-02-05 12:49] LABS: Body Fluid WBC 268 /uL; Monocytes # Body Fluid 0.248
[2024-02-05] MEDS: albumin 75 G/300 ML BAG 60 G IV (13:20)
== END 2024-02-05 14:56 | disposition home or self-care (01) ==
PROVIDERS: Radiology Diagnostic Radiology; PCP Nurse Practitioner Family; Visit Provider Internal Medicine
PROC: (CPT 49082; principal; 2024-02-05 12:30)
DX: R18.8 Other ascites (principal)
CPT/HCPCS: 49083; 80503; 87070; 87075; 87205; 89050; 96365; P9046

== ENCOUNTER 2024-02-19 10:54 | Day surgery (SDC) | payer BC, SELFPAY ==
[2024-02-19 11:14] VITALS: BP 134/75; PULSE 93; RESP 22; TEMP 36.2; O2SAT 95; BMI 41.0
--- NOTE | 2024-02-19 11:33 | US_ITS ---
WS: [email or web address] ULTRASOUND-GUIDED THERAPEUTIC AND DIAGNOSTIC PARACENTESIS Procedure, risks, and complications have been explained to the patient. Consent is obtained. Utilizing aseptic technique and 1% buffered lidocaine, a small dermatome was made through which a 5 F rench Yueh catheter was inserted. Approximately 12,010 ml of clear peritoneal fluid was obtained wit hout difficulty. No complications encountered. US/US paracentesis abd w [id number] IMPRESSION: Uncomplicated paracentesis yielding 12,010 ml of peritoneal fluid.
[2024-02-19 12:17] LABS: Cyto Order Verification No Order
[2024-02-19 12:23] LABS: Body Fluid Polynuclear #Cells 0.019; Body Fluid WBC 243 /uL; Monocytes # Body Fluid 0.224
[2024-02-19 12:54] LABS: Apprearance, Body Fluid CLOUDY; Color, Body Fluid YELLOW; Fluid Laterality PERITONEAL FLUID; PATH Referral YES
[2024-02-19] MEDS: albumin 75 G/300 ML BAG 60 G IV (12:58)
== END 2024-02-19 13:50 | disposition home or self-care (01) ==
LOC: GILAB 10:55
PROVIDERS: Radiology Diagnostic Radiology; PCP Nurse Practitioner Family; Visit Provider Internal Medicine
PROC: (CPT 49082; principal; 2024-02-19 12:30)
DX: R18.8 Other ascites (principal)
CPT/HCPCS: 49083; 80503; 87070; 87075; 87205; 89050; 96365; P9046

== ENCOUNTER → 2024-02-26 11:13 | Day surgery (SDC) | payer BC, SELFPAY ==
[2024-02-26 11:29] VITALS: BP 122/60; PULSE 87; RESP 20; O2SAT 98
[2024-02-26 11:33] VITALS: BMI 40.1
--- NOTE | 2024-02-26 12:14 | US_ITS ---
WS: [email or web address] ULTRASOUND-GUIDED PARACENTESIS CLINICAL INFORMATION: cirrhosis of liver with ascites COMPARISON: None. Procedure Informed consent: The risks, benefits, and alternatives of the procedure were discussed with the caterina ent. Verbal and written consent was obtained. Timeout: A timeout was performed to confirm the correct patient, procedure, and site. Preparation: A suitable skin site was identified. The patient was prepped and draped in usual sterile fashion. Lidocaine 1% was used for local anesthesia. Catheter: 4 Portuguese One-step [employer] catheter. Side: LEFT lower quadrant. Fluid Volume: 10,000 ml Color: Clear yellow DISPOSITION: Discarded safely. Complications: None. Patient disposition: Discharged from the department in stable condition. US/US paracentesis abd w [id number] IMPRESSION: Uncomplicated ultrasound-guided paracentesis. Removal of 10,000 cc
[2024-02-26] MEDS: albumin 75 G/300 ML BAG 100 G IV (13:26)
[2024-02-26 13:38] LABS: Cyto Order Verification No Order
[2024-02-26 13:39] LABS: Appearance, Peritoneal Fluid Cloudy (Clear); Color, Peritoneal Fluid Pale Yellow (Pale Yellow)
[2024-02-26 13:43] LABS: Mononuclear #, Pertinoneal Fl 0.201 10^3/uL; Polynuclear # Cells, Perit 0.023 10^3/uL; RBC Pertioneal Fluid 5 10^3/uL; WBC Peritoneal Fluid 224 /uL
== END ==
PROVIDERS: Radiology Neuroradiology; PCP Nurse Practitioner Family; Visit Provider Internal Medicine
PROC: (CPT 49082; principal; 2024-02-26 12:30)
DX: K74.60 Unspecified cirrhosis of liver (principal); R18.8 Other ascites
CPT/HCPCS: 49083; 87070; 87075; 87205; 89050; 96365; P9046

== ENCOUNTER → 2024-03-04 11:06 | Day surgery (SDC) | payer BC, SELFPAY ==
[2024-03-04 11:31] VITALS: BP 127/73; PULSE 80; RESP 16; TEMP 36.8; O2SAT 97
[2024-03-04 11:32] VITALS: BMI 40.1
--- NOTE | 2024-03-04 11:34 | US_ITS ---
WS: [id number] ULTRASOUND-GUIDED THERAPEUTIC AND DIAGNOSTIC PARACENTESIS Procedure, risks, and complications have been explained to the patient. Consent is obtained. Utilizing aseptic technique and 1% buffered lidocaine, a small dermatome was made through which a 5 F rench Yueh catheter was inserted. Approximately 10,000 ml of clear peritoneal fluid was obtained wit hout difficulty. No complications encountered. Specimen collected for analysis. US/US paracentesis abd w [id number] IMPRESSION: Uncomplicated paracentesis yielding 10,000 ml of peritoneal fluid.
[2024-03-04] MEDS: albumin 75 G/300 ML BAG 60 G IV (12:46)
== END ==
PROVIDERS: Radiology Diagnostic Radiology; PCP Nurse Practitioner Family; Visit Provider Internal Medicine
PROC: (CPT 49082; principal; 2024-03-04 12:30)
DX: K74.60 Unspecified cirrhosis of liver (principal); R18.8 Other ascites
CPT/HCPCS: 49083; 87070; 87075; 87205; 96365; P9046

== ENCOUNTER 2024-03-11 10:37 | Day surgery (SDC) | payer BC, SELFPAY ==
[2024-03-11 10:51] VITALS: BP 131/70; PULSE 90; RESP 18; TEMP 36.4; O2SAT 98; BMI 40.1
--- NOTE | 2024-03-11 10:55 | US_ITS ---
WS: [email or web address] ULTRASOUND-GUIDED PARACENTESIS CLINICAL INFORMATION: cirrhosis of liver with ascites COMPARISON: None. Procedure Informed consent: The risks, benefits, and alternatives of the procedure were discussed with the caterina ent. Verbal and written consent was obtained. Timeout: A timeout was performed to confirm the correct patient, procedure, and site. Preparation: A suitable skin site was identified. The patient was prepped and draped in usual sterile fashion. Lidocaine 1% was used for local anesthesia. Catheter: 4 Yi One-step [employer] catheter. Side: LEFT lower quadrant. Fluid Volume: 10,500 ml Color: Clear yellow DISPOSITION: Discarded safely. Complications: None. Patient disposition: Discharged from the department in stable condition. US/US paracentesis abd w [id number] IMPRESSION: Uncomplicated ultrasound-guided paracentesis. Removal of 10, 500 cc
[2024-03-11 11:54] LABS: Appearance, Peritoneal Fluid Cloudy (Clear); Color, Peritoneal Fluid Other (Pale Yellow); Cyto Order Verification No Order; Pathology Referral Yes
[2024-03-11 11:56] LABS: Mononuclear #, Pertinoneal Fl 0.201 10^3/uL; Polynuclear # Cells, Perit 0.027 10^3/uL; RBC Pertioneal Fluid 2 10^3/uL; WBC Peritoneal Fluid 228 /uL
[2024-03-11] MEDS: albumin 75 G/300 ML BAG 999 G IV (12:34)
== END 2024-03-11 13:10 | disposition home or self-care (01) ==
PROVIDERS: Internal Medicine; Radiology Neuroradiology; PCP Nurse Practitioner Family
PROC: (CPT 49082; principal; 2024-03-11 12:00)
DX: K74.60 Unspecified cirrhosis of liver (principal); R18.8 Other ascites
CPT/HCPCS: 49083; 80503; 89050; P9046

== ENCOUNTER 2024-03-17 13:02 | Outpatient (CLI) | payer BC, SELFPAY ==
--- NOTE | 2024-03-17 13:15 | USCV_ITS ---
Dong Diaz Age: 63 Gender: M : 1960 Exam Date: 03/17/2024 13:12 Ordering Phys: Krish Garner M.D ([email or web address]) Technologist: CT Exam Location: [place] Indication: BP: 140 / 60 HR: 86 Rhythm: Sinus Technical Quality: Adequate MEASUREMENTS (Male / Female) Normal Values 2D ECHO LV Diastolic Diameter PLAX 5.1 cm 4.2 - 5.9 / 3.9 - 5.3 cm IVS Diastolic Thickness 1.1 cm 0.6 - 1.0 / 0.6 - 0.9 cm IVS Systolic Thickness 2.0 cm LVPW Diastolic Thickness 1.2 cm 0.6 - 1.0 / 0.6 - 0.9 cm LVPW Systolic Thickness 1.7 cm LVOT Diameter 2.1 cm LV Ejection Fraction 2D Teich 69.5 % LV Ejection Fraction MOD 4C 66.8 % LV Ejection Fraction MOD 2C 56.1 % LV Ejection Fraction 2C AL 56.1 % LA Diameter 5.0 cm RA Systolic Volume 4C AL 46.8 ml RA Systolic Volume 4C MOD 45.1 ml M-MODE LA Ao Ratio MM 1.4 AV Cusp Separation MM 2.2 cm DOPPLER AV Peak Velocity 228.0 cm/s LVOT Peak Velocity 153.0 cm/s AV Area Cont Eq vti 2.9 cm squared AV Area Cont Eq pk 2.3 cm squared TV Peak Velocity 252.0 cm/s TR Peak Velocity 325.0 cm/s TR Peak Gradient 42.3 mmHg TV Peak E Velocity 137.0 cm/s Right Atrial Pressure 3.0 mmHg Pulmonary Artery Systolic Pressu 45.3 mmHg PV Peak Velocity 179.5 cm/s FINDINGS Left Ventricle Normal left ventricular size, systolic function and wall thickness, with no regional wall motion abnormalities. Left ventricular ejection fraction is estimated at 55 %. Mildly increased left ventricular filling pressure. Right Ventricle The right ventricle is normal in size and function. Right Atrium The right atrium is normal in size. Left Atrium The left atrium is normal in size. Mitral Valve Moderately thickened mitral valve. Severe mitral annular calcification. No mitral valve stenosis. No mitral valve regurgitation. Aortic Valve Structurally normal aortic valve without significant sclerosis or stenosis. There is no aortic regurgitation. Tricuspid Valve Structurally normal tricuspid valve without significant stenosis or regurgitation. Pulmonary artery systolic pressure is normal. Pulmonic Valve Structurally normal pulmonic valve without significant stenosis. There is no pulmonic regurgitation. Pericardium Normal pericardium without effusion. Aorta Normal ascending aorta dimension. IVC The inferior vena cava appears normal. CONCLUSIONS Normal left ventricular size, systolic function and wall thickness, with no regional wall motion abnormalities. Left ventricular ejection fraction is estimated at 55 %. Mildly increased left ventricular filling pressure. Moderately thickened mitral valve. Severe mitral annular calcification. No mitral valve stenosis. No mitral valve regurgitation. There is no pericardial effusion. Right atrial pressure is around 5 mm of mercury. Sofiya Sebastian MD (Electronically Signed) Final Date: 17 March 2024 16:28 S
== END 2024-03-17 13:03 | disposition home or self-care (01) ==
LOC: RAD 13:02
PROVIDERS: PCP Nurse Practitioner Family; Visit Provider Internal Medicine
DX: I34.81 Nonrheumatic mitral (valve) annulus calcification (principal); R06.02 Shortness of breath
CPT/HCPCS: 93306

== ENCOUNTER → 2024-03-18 11:26 | Day surgery (SDC) | payer BC, SELFPAY ==
--- NOTE | 2024-03-18 11:31 | US_ITS ---
WS: [id number] ULTRASOUND-GUIDED PARACENTESIS Procedure, risks, and complications have been explained to the patient. Consent is obtained. Utilizing aseptic technique and 1% buffered lidocaine, a small dermatome was made through which a 5 F rench Yueh catheter was inserted. Approximately 10,100 ml of clear peritoneal fluid was obtained wit hout difficulty. No complications encountered. US/US paracentesis abd w [id number] IMPRESSION: Uncomplicated paracentesis yielding 10,100 ml of peritoneal fluid.
[2024-03-18 11:54] VITALS: BP 119/64; PULSE 80; RESP 20; TEMP 36.3; O2SAT 100; BMI 38.0
[2024-03-18] MEDS: albumin 75 G/300 ML BAG 60 G IV (12:45)
[2024-03-18 13:00] LABS: Cyto Order Verification No Order
[2024-03-18 13:05] LABS: Mononuclear #, Pertinoneal Fl 0.157 10^3/uL; Polynuclear # Cells, Perit 0.022 10^3/uL; RBC Pertioneal Fluid 2 10^3/uL; WBC Peritoneal Fluid 179 /uL
[2024-03-18 13:20] LABS: Appearance, Peritoneal Fluid Cloudy (Clear); Color, Peritoneal Fluid Pale Yellow (Pale Yellow)
[2024-03-18 13:21] LABS: Pathology Referral Yes
== END ==
PROVIDERS: Radiology Diagnostic Radiology; PCP Nurse Practitioner Family; Visit Provider Internal Medicine
PROC: (CPT 49082; principal; 2024-03-18 12:30)
DX: K74.60 Unspecified cirrhosis of liver (principal); R18.8 Other ascites
CPT/HCPCS: 49083; 80503; 87070; 87075; 87205; 89050; 96365; P9046

== ENCOUNTER 2024-03-25 11:09 | Day surgery (SDC) | payer BC, SELFPAY ==
[2024-03-25 11:27] VITALS: BP 142/70; PULSE 95; RESP 20; TEMP 36.5; O2SAT 96
--- NOTE | 2024-03-25 11:30 | US_ITS ---
WS: [email or web address] ULTRASOUND-GUIDED PARACENTESIS CLINICAL INFORMATION: cirrhosis of the liver with ascites COMPARISON: None. Procedure Informed consent: The risks, benefits, and alternatives of the procedure were discussed with the caterina ent. Verbal and written consent was obtained. Timeout: A timeout was performed to confirm the correct patient, procedure, and site. Preparation: A suitable skin site was identified. The patient was prepped and draped in usual sterile fashion. Lidocaine 1% was used for local anesthesia. Catheter: 4 Afghan One-step [employer]h catheter. Side: LEFT lower quadrant. Fluid Volume: 10,000 ml Color: Clear yellow DISPOSITION: Discarded safely. Complications: None. Patient disposition: Discharged from the department in stable condition. US/US paracentesis abd w [id number] IMPRESSION: Uncomplicated ultrasound-guided paracentesis. Removal of 10,000 cc
[2024-03-25] MEDS: albumin 75 G/300 ML BAG 300 G IV (12:45)
== END 2024-03-25 13:40 | disposition home or self-care (01) ==
PROVIDERS: Radiology Neuroradiology; PCP Nurse Practitioner Family; Visit Provider Internal Medicine
PROC: (CPT 49082; principal; 2024-03-25 12:30)
DX: K74.60 Unspecified cirrhosis of liver (principal); R18.8 Other ascites
CPT/HCPCS: 49083; 96365; P9046

== ENCOUNTER 2024-04-08 11:04 | Day surgery (SDC) | payer BC, SELFPAY ==
[2024-04-08 11:23] VITALS: BMI 38.0
[2024-04-08 11:24] VITALS: BP 126/70; PULSE 87; RESP 18; TEMP 36.1; O2SAT 97
--- NOTE | 2024-04-08 11:28 | US_ITS ---
WS: [email or web address] ULTRASOUND-GUIDED PARACENTESIS CLINICAL INFORMATION: cirrhosis of liver with ascites COMPARISON: None. Procedure Informed consent: The risks, benefits, and alternatives of the procedure were discussed with the caterina ent. Verbal and written consent was obtained. Timeout: A timeout was performed to confirm the correct patient, procedure, and site. Preparation: A suitable skin site was identified. The patient was prepped and draped in usual sterile fashion. Lidocaine 1% was used for local anesthesia. Catheter: 4 Hebrew One-step [employer] catheter. Side: LEFT lower quadrant. Approximately 7000 cc was drained initially before catheter clogged. Additional site in the LEFT lowe r quadrant was selected and an additional 3200 cc was drained. Fluid Volume: 10,200 ml Color: Clear yellow DISPOSITION: Discarded safely. Patient disposition: Discharged from the department in stable condition. US/US paracentesis abd w [id number] IMPRESSION: Uncomplicated ultrasound-guided paracentesis. Removal of 10,200 cc
[2024-04-08 12:43] LABS: Cyto Order Verification No Order
[2024-04-08 12:49] LABS: Mononuclear #, Pertinoneal Fl 0.137 10^3/uL; Polynuclear # Cells, Perit 0.026 10^3/uL; RBC Pertioneal Fluid 6 10^3/uL; WBC Peritoneal Fluid 163 /uL
[2024-04-08 12:57] LABS: Appearance, Peritoneal Fluid Cloudy (Clear); Color, Peritoneal Fluid Amber (Pale Yellow)
[2024-04-08 12:58] LABS: Pathology Referral Yes
[2024-04-08] MEDS: albumin 50 G/200 ML BAG 60 G IV (13:10)
[2024-04-08] MEDS: albumin 25 G/100 ML BAG 60 G IV (14:18)
== END 2024-04-08 14:35 | disposition home or self-care (01) ==
PROVIDERS: Radiology Neuroradiology; PCP Nurse Practitioner Family; Visit Provider Internal Medicine
PROC: (CPT 49082; principal; 2024-04-08 12:00)
DX: K74.60 Unspecified cirrhosis of liver (principal); R18.8 Other ascites
CPT/HCPCS: 49083; 80503; 89050; 96365; P9046

== ENCOUNTER 2024-04-15 11:01 | Day surgery (SDC) | payer BC, SELFPAY ==
--- NOTE | 2024-04-15 11:39 | US_ITS ---
WS: [id number] ULTRASOUND-GUIDED THERAPEUTIC AND DIAGNOSTIC PARACENTESIS Procedure, risks, and complications have been explained to the patient. Consent is obtained. Utilizing aseptic technique and 1% buffered lidocaine, a small dermatome was made through which a 5 F rench Yueh catheter was inserted. Approximately 11,300 ml of clear peritoneal fluid was obtained wit hout difficulty. No complications encountered. Specimen collected for analysis also. US/US paracentesis abd w [id number] IMPRESSION: Uncomplicated paracentesis yielding 11,300 ml of peritoneal fluid.
[2024-04-15 12:02] VITALS: BP 138/71; PULSE 88; RESP 18; TEMP 36.2; O2SAT 97
[2024-04-15 12:45] LABS: Cyto Order Verification No Order
[2024-04-15 12:53] LABS: Apprearance, Body Fluid CLOUDY; Body Fluid Polynuclear #Cells 0.021; Body Fluid WBC 152 /uL; Color, Body Fluid PALE YELLOW; Monocytes # Body Fluid 0.131
[2024-04-15] MEDS: albumin 75 G/300 ML BAG 500 G IV (12:53)
[2024-04-15 12:54] LABS: Fluid Laterality PERITONEAL FLUID; PATH Referral YES
== END 2024-04-15 13:30 | disposition home or self-care (01) ==
PROVIDERS: Internal Medicine; Radiology Diagnostic Radiology; PCP Nurse Practitioner Family
PROC: (CPT 49082; principal; 2024-04-15 12:00)
DX: R18.8 Other ascites (principal); K74.60 Unspecified cirrhosis of liver
CPT/HCPCS: 49083; 80503; 87070; 87075; 87205; 89050; 96365; P9046

== ENCOUNTER 2024-04-27 03:42 | Inpatient (IN) | payer BC, SELFPAY ==
[2024-04-27] VITALS (168 sets, daily range): BP systolic 84–138; BP diastolic 36–71; PULSE 63–89; RESP 14–36; TEMP 35.8–36.5; O2SAT 90–100
--- NOTE | 2024-04-27 03:50 | XRR_ITS ---
PROCEDURE INFORMATION: Exam: XR Chest Exam date and time: 04/27/2024 4:17 AM Age: 63 years old Clinical indication: Shortness of breath; Prior surgery; Surgery date: Post-operative (0-2 days); Surgery type: 17 liters drained on ; Patient HX: Liver cancer TECHNIQUE: Imaging protocol: Radiologic exam of the chest. Views: 1 view. COMPARISON: No relevant prior studies available. FINDINGS: Lungs: Retrocardiac infiltrate or atelectasis suspected. Pleural spaces: Hazy opacity is noted at the right lung base likely representing layering pleural fluid. No pneumothorax is identified. Heart/Mediastinum: The heart is enlarged. Diaphragm: There is elevation of the right hemidiaphragm. Bones/joints: Unremarkable. XR/XR chest 1V portable [id number] IMPRESSION: 1. Mild cardiomegaly. 2. Retrocardiac infiltrate and/or atelectasis. 3. Suspect layering pleural fluid on the right.
--- NOTE | 2024-04-27 03:53 | W.ED.GENADLT ---
Documented by User: Ede Nina 04/27/24 03:54 HPI - General Adult General: Chief complaint: Shortness of Breath/Dyspnea Stated complaint: RESP. DISTRESS Time Seen by Provider: 04/27/24 03:49 History of Present Illness: Patient presents to the ER with complaints of respiratory distress ascites. Patient states he normally gets paracentesis every , he got 17 L drained off last at [facility] because he was already there for an appointment. Patient feels that he is full and needs drained already again. Related Data Home Medications Medication Instructions Recorded Confirmed cholecalciferol (vitamin D3) 50 50 mcg PO DAILY 11/13/21 04/27/24 mcg (2,000 unit) capsule ferrous sulfate 325 mg (65 mg 325 mg PO DAILY 11/27/21 04/27/24 iron) tablet melatonin 5 mg capsule 10 mg PO BEDTIME PRN Sleep 11/27/21 04/27/24 mecobalamin (vitamin B12) 1,000 1,000 mcg PO DAILY 11/05/22 04/27/24 mcg chewable tablet (B12 Active) cholestyramine-aspartame 4 gram 1 ea PO DAILY 02/05/24 04/27/24 oral powder for susp in a packet ascorbic acid (vitamin C) 500 mg 500 mg PO DAILY 02/16/24 04/27/24 capsule pyridoxine (vitamin B6) 50 mg 50 mg PO BID 02/16/24 04/27/24 tablet (Vitamin B-6) insulin degludec 200 unit/mL (3 40 unit SUBCUT .QAM 02/17/24 04/27/24 mL) subcutaneous pen (Tresiba FlexTouch U-200 insulin) cyanocobalamin (vitamin B-12) 500 500 mcg PO DAILY 02/19/24 04/27/24 mcg tablet magnesium 200 mg tablet 200 mg PO DAILY 02/19/24 04/27/24 pravastatin 10 mg tablet 10 mg PO DAILY 03/03/24 04/27/24 dapagliflozin propanediol 10 mg 10 mg PO DAILY 03/15/24 04/27/24 tablet (Farxiga) furosemide 40 mg tablet 40 mg PO DAILY 04/27/24 04/27/24 metformin 1,000 mg tablet See Rx Instructions .Route .COMPLEX 04/27/24 04/27/24 multivitamin 1 tab PO QAM 04/27/24 04/27/24 trazodone 50 mg tablet 50 mg PO BEDTIME 04/27/24 04/27/24 Previous Rx's Medication Instructions Recorded aspirin 81 mg tablet,delayed 81 mg PO DAILY #90 tabs 02/16/24 release (Adult Aspirin Regimen) loratadine 10 mg tablet 10 mg PO BID #180 tabs 04/16/24 sodium bicarbonate 650 mg tablet 650 mg PO BID #180 tabs 04/16/24 dulaglutide 3 mg/0.5 mL See Rx Instructions .Route 04/23/24 subcutaneous pen injector .COMPLEX #4 mL (Trulicity) Allergies Allergy/AdvReac Type Severity Reaction Status Date / Time No Known Allergies Allergy Verified 04/14/24 11:56 Review of Systems General: Reports: 10 or more systems reviewed and unremarkable except in HPI and below PFSH ED PFSH: Medical History Liver cancer Elevated liver enzymes Low vitamin D level Portal hypertension Chronic kidney disease Diabetes mellitus Hyperlipidemia Hypertriglyceridemia Chronic cough Surgical History S/P TAVR (transcatheter aortic valve replacement) History of esophageal surgery S/P tonsillectomy S/P LASIK surgery S/P sinus surgery Family History Unknown No problems noted. Social History Smoking and tobacco/nicotine status: former use of tobacco/nicotine Alcohol intake: never Substance/Drug Use: never Adopted: Yes (Biological mother's family has hx of hypertension) Physical Exam Const: COMMON NORMALS: average body habitus, patient oriented x3, no limitations, healthy appearing, alert and well nourished Neck/C-Spine: COMMON NORMALS: no JVD Chest: COMMONS NORMALS: normal inspection of the chest and normal palpation of entire chest wall Resp: COMMON NORMALS: normal respiratory effort, No retractions, No use of accessory muscles and clear to auscultation bilaterally (Decreased breath sounds bilaterally) AUSCULTATION: clear to auscultation bilaterally (Decreased breath sounds bilaterally) Cardio: COMMON NORMALS: no JVD, regular rate, regular rhythm, S1 normal heart sound present, S2 normal heart sound present, No gallops present (Cardio) and No murmurs present (Cardio) RATE: regular rate RHYTHM: regular rhythm HEART SOUNDS: S1 normal heart sound present and S2 normal heart sound present GI: COMMON NORMALS: non-tender : OTHER: Protuberant distended consistent with large volume ascites nontender with palpation Neuro: COMMON NORMALS: patient oriented x3 SENSORIUM/ORIENTATION: Yes alert Course Vital Signs: Vital signs: Vital Signs Temperature 97.2 F L 04/27/24 12:01 Pulse Rate 69 04/27/24 13:15 Respiratory Rate 26 H 04/27/24 13:15 Blood Pressure 110/45 04/27/24 13:15 Pulse Oximetry 99 04/27/24 13:15 Oxygen Delivery Me thod BiPAP 04/27/24 06:45 Oxygen Flow Rate 15 04/27/24 04:00 Fraction of Inspir ed Oxygen 30 04/27/24 11:[address] [facility] - General Adult Medical Records I reviewed the patient's medical records. Lab Data I reviewed the patient's lab results. 04/27/24 04:09 04/27/24 13:10 Radiology Impressions Chest X-Ray 04/27/24 06:33 IMPRESSION: 1. Cardiomegaly with mild vascular congestion suspected. 2. Small right pleural effusion. Pelvis X-Ray 04/27/24 06:34 IMPRESSION: 1. Left femoral catheter. Laboratory Results WBC 10.22 10^3/uL (3.29-11.43) 04/27/24 04:09 RBC 2.90 10^6/uL (3.85-5.65) L 04/27/24 04:09 Hgb 8.40 g/dL (11.27-16.99) L 04/27/24 04:09 Hct 28.3 % (37-53) L 04/27/24 04:09 MCV 97.6 fl (82-101) 04/27/24 04:09 MCH 29.0 pg (27-33) 04/27/24 04:09 MCHC 29.7 g/dL (30-55) L 04/27/24 04:09 RDW 15.8 % (12.1-15.1) H 04/27/24 04:09 Plt Count 120 10^3/cmm (157-399) L 04/27/24 04:09 MPV 10.9 fL (7.4-10.4) H 04/27/24 04:09 Neut % (Auto) 84.2 % 04/27/24 04:09 Lymph % (Auto) 3.0 % 04/27/24 04:09 [place] % (Auto) 10.5 % 04/27/24 04:09 Eos % (Auto) 1.5 % 04/27/24 04:09 Baso % (Auto) 0.4 % 04/27/24 04:09 Neut # (Auto) 8.61 10^3/uL (1.8-7.7) H 04/27/24 04:09 Lymph # (Auto) 0.3 10^3/uL (0.8-4.8) L 04/27/24 04:09 [place] # (Auto) 1.1 10^3/uL (0.2-0.9) H 04/27/24 04:09 Eos # (Auto) 0.2 10^3/uL (0.0-0.8) 04/27/24 04:09 Baso # (Auto) 0.0 10^3/uL (0.0-0.1) 04/27/24 04:09 Nucleated RBC % (auto) 0 % 04/27/24 04:09 Nucleated RBCs # 0.0 /100WBC 04/27/24 04:09 PT 15.80 SECONDS (12.1-14.9) H 04/27/24 04:09 INR 1.22 (0.8-1.2) H 04/27/24 04:09 Specimen Type Arterial 04/27/24 05:12 Sample Site Brachial, right 04/27/24 05:12 ABG pH 7.21 (7.35-7.45) L 04/27/24 05:12 ABG pCO2 32.2 mmHg (35-45) L 04/27/24 05:12 ABG pO2 331.0 mmHg (80.0-100.0) H 04/27/24 05:12 ABG PO2/FiO2 Ratio 331 04/27/24 05:12 ABG HCO3 12.9 mmol/L (22-26) L 04/27/24 05:12 ABG O2 Saturation > 99.1 04/27/24 05:12 ABG Base Excess -13.8 mmol/L (-2.0-2.0) L 04/27/24 05:12 Sly Test N/a 04/27/24 05:12 A-a O2 Gradient 43.6 mmHg (5-10) H 04/27/24 05:12 Hematocrit 25.8 % (42-52) L 04/27/24 05:12 Hgb O2 Saturation 98.9 % (95-100) 04/27/24 05:12 Carboxyhemoglobin 1.3 %THgb (0.4-20.1) 04/27/24 05:12 Methemoglobin 0.4 % (0.4-1.5) 04/27/24 05:12 Total Hemoglobin 8.4 g/dL (14-18) L 04/27/24 05:12 Sodium 127.0 mmol/L (131-143) L 04/27/24 05:12 Potassium 8.0 mmol/L (3.5-5.0) H 04/27/24 05:12 Glucose 311.0 mg/dL (70-115) H 04/27/24 05:12 Ionized Calcium 1.5 mmol/L (1.1-1.4) H 04/27/24 05:12 O2 Delivery Device Bipap 04/27/24 05:12 FiO2 100.0 % 04/27/24 05:12 Weighbridge Operator ID [email or web address] 04/27/24 05:12 Sodium 129 mmol/L (136-145) L 04/27/24 04:09 Potassium 8.6 mmol/L (3.5-5.1) H* 04/27/24 05:20 Chloride 107 mmol/L (98-107) 04/27/24 04:09 Carbon Dioxide 13 mmol/L (22-29) L 04/27/24 04:09 Anion Gap 18.3 (5-19) 04/27/24 04:09 BUN 54 mg/dL (8-23) H 04/27/24 04:09 Creatinine 1.8 mg/dL (0.7-1.2) H 04/27/24 04:09 GFR Calculation 38.4 mL/min (90-130) L 04/27/24 04:09 Glucose 143 mg/dL (65-115) H 04/27/24 04:09 POC Glucose 218 mg/dL (70-110) H 04/27/24 06:58 Calculated Osmolality 285 mOsm/kg (285-295) 04/27/24 04:09 Calcium 8.1 mg/dL (8.5-10.5) L 04/27/24 04:09 Magnesium 2.4 mg/dL (1.7-2.3) H 04/27/24 05:20 Total Bilirubin 1.1 mg/dL (0.15-1.2) 04/27/24 04:09 AST 65 U/L (0-40) H 04/27/24 04:09 ALT 37 U/L (0-41) 04/27/24 04:09 Alkaline Phosphatase 181 U/L (40-130) H 04/27/24 04:09 Ammonia 72 umol/L (16-60) H 04/27/24 05:20 Troponin T Baseline 135 ng/L (0-15) H* 04/27/24 04:09 Total Protein 6.6 g/dL (6.6-8.7) 04/27/24 04:09 Albumin 3.4 g/dL (3.5-5.2) L 04/27/24 04:09 Globulin 3.2 g/dL (1.3-4.6) 04/27/24 04:09 Urine Color Dark yellow (Yellow) A 04/27/24 06:54 Urine Appearance Clear (CLEAR) 04/27/24 06:54 Urine pH 5.5 (5-7) 04/27/24 06:54 Ur Specific [place] 1.020 (1.005-1.030) 04/27/24 06:54 Urine Protein 2+ (Negative) A 04/27/24 06:54 Urine Glucose (UA) 1+ (Normal) H 04/27/24 06:54 Urine Ketones Negative (Negative) 04/27/24 06:54 Urine Blood 2+ (Negative) A 04/27/24 06:54 Urine Nitrate Negative (Negative) 04/27/24 06:54 Urine Bilirubin Negative (Negative) 04/27/24 06:54 Urine Urobilinogen 0.2 mg/dL (Negative) 04/27/24 06:54 Ur Leukocyte Esterase Negative (Negative) 04/27/24 06:54 Urine RBC 51-100 /hpf (0-2) H 04/27/24 06:54 Urine WBC 6-10 /hpf (0-5) 04/27/24 06:54 Ur Squamous Epith Cells 0-5 /hpf (0-5) 04/27/24 06:54 Amorphous Sediment Not Reportable 04/27/24 06:54 Urine Bacteria Trace /hpf (NONE) 04/27/24 06:54 Hyaline Casts 25.63 /lpf 04/27/24 06:54 Coarse Granular Casts 0-4 /lpf H 04/27/24 06:54 Hep Bs Antigen Non-reactive (Nonreactive) 04/27/24 05:20 Hep Bs Antibody < 3.5 (11.5-1000) L 04/27/24 05:20 All radiology interpretation(s) finalized by discharge Discharge Plan Discharge Patient Disposition: Admitted As Inpatient Admit Provider: Ozzy Go Clinical Impression: Ventricular tachycardia, XIE (nonalcoholic steatohepatitis), Diabetes mellitus, Chronic kidney disease, KJ (acute kidney injury), Metabolic acidosis, Acute respiratory failure, Acute encephalopathy, Acute hyperkalemia Condition: Stable Sign Out Sign Out Data: Patient Sign Out occurred on 04/27/24 at 06:42. Patient's care was discussed, and care was transferred from Ede Nina DO to Gallito Carrington DO. Coding Level of Care Code ED Information Technology Auditor for Chg Fwd Documented by User: Gallito Carrington DO 04/27/24 13:59 HPI - General Adult General: Chief complaint: Shortness of Breath/Dyspnea Stated complaint: RESP. DISTRESS Time Seen by Provider: 04/27/24 03:49 Related Data Home Medications Medication Instructions Recorded Confirmed cholecalciferol (vitamin D3) 50 50 mcg PO DAILY 11/13/21 04/27/24 mcg (2,000 unit) capsule ferrous sulfate 325 mg (65 mg 325 mg PO DAILY 11/27/21 04/27/24 iron) tablet melatonin 5 mg capsule 10 mg PO BEDTIME PRN Sleep 11/27/21 04/27/24 mecobalamin (vitamin B12) 1,000 1,000 mcg PO DAILY 11/05/22 04/27/24 mcg chewable tablet (B12 Active) cholestyramine-aspartame 4 gram 1 ea PO DAILY 02/05/24 04/27/24 oral powder for susp in a packet ascorbic acid (vitamin C) 500 mg 500 mg PO DAILY 02/16/24 04/27/24 capsule pyridoxine (vitamin B6) 50 mg 50 mg PO BID 02/16/24 04/27/24 tablet (Vitamin B-6) insulin degludec 200 unit/mL (3 40 unit SUBCUT .QAM 02/17/24 04/27/24 mL) subcutaneous pen (Tresiba FlexTouch U-200 insulin) cyanocobalamin (vitamin B-12) 500 500 mcg PO DAILY 02/19/24 04/27/24 mcg tablet magnesium 200 mg tablet 200 mg PO DAILY 02/19/24 04/27/24 pravastatin 10 mg tablet 10 mg PO DAILY 03/03/24 04/27/24 dapagliflozin propanediol 10 mg 10 mg PO DAILY 03/15/24 04/27/24 tablet (Farxiga) furosemide 40 mg tablet 40 mg PO DAILY 04/27/24 04/27/24 metformin 1,000 mg tablet See Rx Instructions .Route .COMPLEX 04/27/24 04/27/24 multivitamin 1 tab PO QAM 04/27/24 04/27/24 trazodone 50 mg tablet 50 mg PO BEDTIME 04/27/24 04/27/24 Previous Rx's Medication Instructions Recorded aspirin 81 mg tablet,delayed 81 mg PO DAILY #90 tabs 02/16/24 release (Adult Aspirin Regimen) loratadine 10 mg tablet 10 mg PO BID #180 tabs 04/16/24 sodium bicarbonate 650 mg tablet 650 mg PO BID #180 tabs 04/16/24 dulaglutide 3 mg/0.5 mL See Rx Instructions .Route 04/23/24 subcutaneous pen injector .COMPLEX #4 mL (Trulicity) Allergies Allergy/AdvReac Type Severity Reaction Status Date / Time No Known Allergies Allergy Verified 04/14/24 11:56 PFSH ED PFS: Medical History Liver cancer Elevated liver enzymes Low vitamin D level Portal hypertension Chronic kidney disease Diabetes mellitus Hyperlipidemia Hypertriglyceridemia Chronic cough Surgical History S/P TAVR (transcatheter aortic valve replacement) History of esophageal surgery S/P tonsillectomy S/P LASIK surgery S/P sinus surgery Family History Unknown No problems noted. Social History Smoking and tobacco/nicotine status: former use of tobacco/nicotine Alcohol intake: never Substance/Drug Use: never Adopted: Yes (Biological mother's family has hx of hypertension) Procedures Central Line Placement Left Femoral: Patient Placed on Monitor/Pulse Ox: Yes Prep: mask, gown and gloves Central Line Prep: Chlorhexidine scrub Local Anesthetic: lidocaine 1% Amount of anesthesia used (mL): 6 Ultrasound Used for Placement: Yes Central Line Lumen Inserted: triple Post Procedure: sutured in place, good blood return and all ports aspirated, flushed, capped Post Procedure X-Ray: tip of catheter in good position Patient Tolerated Procedure: well Complications: none Additional Comments: Dialysis catheter placed without difficulty in the left femoral vein confirmed on x-ray Left IJ: Patient Placed on Monitor/Pulse Ox: Yes Prep: mask, gown and gloves Central Line Prep: Chlorhexidine scrub Local Anesthetic: lidocaine 1% Amount of anesthesia used (mL): 3 Ultrasound Used for Placement: Yes Central Line Lumen Inserted: triple Post Procedure: good blood return Patient Tolerated Procedure: well Complications: none (Unable to advance wire. Wire visualized curling within the vein on ultrasound) Additional Comments: Several attempts were made and successfully engaged the left internal jugular was able to advance the wire and visualize the wire within the vessel however as the wire was advanced it recurrently curled back and doubled up within the vessel. Right a second wire and was still unable to advance the wire successfully. Reengaged the vessel at a different level and still had the same problem after several attempts abandoned the left IJ went to the right IJ was placed without difficulty Right IJ: Patient Placed on Monitor/Pulse Ox: Yes Prep: mask, gown and gloves Central Line Prep: Chlorhexidine scrub Local Anesthetic: lidocaine 1% Amount of anesthesia used (mL): 5 Ultrasound Used for Placement: Yes Central Line Lumen Inserted: triple Post Procedure: sutured in place, good blood return, all ports aspirated, flushed, capped and sterile dressing applied Post Procedure X-Ray: tip of catheter in good position Patient Tolerated Procedure: well Complications: none Course Vital Signs: Vital signs: Vital Signs Temperature 97.2 F L 04/27/24 12:01 Pulse Rate 69 04/27/24 13:15 Respiratory Rate 26 H 04/27/24 13:15 Blood Pressure 110/45 04/27/24 13:15 Pulse Oximetry 99 04/27/24 13:15 Oxygen Delivery Me thod BiPAP 04/27/24 06:45 Oxygen Flow Rate 15 04/27/24 04:00 Fraction of Inspir ed Oxygen 30 04/27/24 11:35 MDM - General Adult Medical Decision Making Care assumed at change of shift. While I was still signing onto the computer initially patient was noted to develop an arrhythmia and was called to the room upon arriving there patient initially was severely bradycardic was diaphoretic and lethargic difficult to arouse. He was given atropine 1 mg. He had good response to that dopamine was started. Shortly after this he developed ventricular tachycardia was intermittent and then became sustained. He became more and more lethargic and poorly responsive. His at the bedside said he is a Do Not Recussitate unless there is any way we could possibly resuscitate him. We initially put him on BiPAP simultaneously he was synchronized cardioversion of a total of 3 times to the code sheet. During this time he is also given amiodarone. In the midst of this we were informed by lab that his initial potassium was 9.3. He was noted to have developed a new bundle branch block he not been complaining of chest pain prior believe that was from his hyperkalemia. He was given calcium chloride inline albuterol treatments on his BiPAP as well as sodium bicarb glucose and insulin. Eventually we were able to stabilize and became more awake and alert he does not recall being defibrillated. Repeat potassium was still at 8 6. His creatinine was a little above his baseline. I left femoral vein dialysis catheter was placed without difficulty and then a right IJ central line placed. We initially attempted left however we were able to enter the vein and I could advance the wire just a few centimeters and then would curl we could visualize the wire curling within the vein on ultrasound each time after several attempts to the left side was abandoned and went to the right and placed without any difficulty. Reviewed findings with the patient and family he is now more awake and alert consult nephrology of also discussed with hospitalist will admit for dialysis. Uncertain of the etiology of his hyperkalemia he is not on Aldactone, prescribed potassium supplements or other medications that would typically be thought to cause hyperkalemia. For a time we placed patient on BiPAP because he did not want to be intubated early on when he was more lethargic after he is stabilized on his central line was in place for able to give him all the usual medications for hyperkalemia he is more awake and alert we will to take him off the BiPAP without difficulty. He also had a metabolic a list of doses to see his first blood gas. Lab Data 04/27/24 04:09 04/27/24 13:10 Radiology Impressions Chest X-Ray 04/27/24 06:33 IMPRESSION: 1. Cardiomegaly with mild vascular congestion suspected. 2. Small right pleural effusion. Pelvis X-Ray 04/27/24 06:34 IMPRESSION: 1. Left femoral catheter. Laboratory Results WBC 10.22 10^3/uL (3.29-11.43) 04/27/24 04:09 RBC 2.90 10^6/uL (3.85-5.65) L 04/27/24 04:09 Hgb 8.40 g/dL (11.27-16.99) L 04/27/24 04:09 Hct 28.3 % (37-53) L 04/27/24 04:09 MCV 97.6 fl (82-101) 04/27/24 04:09 MCH 29.0 pg (27-33) 04/27/24 04:09 MCHC 29.7 g/dL (30-55) L 04/27/24 04:09 RDW 15.8 % (12.1-15.1) H 04/27/24 04:09 Plt Count 120 10^3/cmm (157-399) L 04/27/24 04:09 MPV 10.9 fL (7.4-10.4) H 04/27/24 04:09 Neut % (Auto) 84.2 % 04/27/24 04:09 Lymph % (Auto) 3.0 % 04/27/24 04:09 [place] % (Auto) 10.5 % 04/27/24 04:09 Eos % (Auto) 1.5 % 04/27/24 04:09 Baso % (Auto) 0.4 % 04/27/24 04:09 Neut # (Auto) 8.61 10^3/uL (1.8-7.7) H 04/27/24 04:09 Lymph # (Auto) 0.3 10^3/uL (0.8-4.8) L 04/27/24 04:09 [place] # (Auto) 1.1 10^3/uL (0.2-0.9) H 04/27/24 04:09 Eos # (Auto) 0.2 10^3/uL (0.0-0.8) 04/27/24 04:09 Baso # (Auto) 0.0 10^3/uL (0.0-0.1) 04/27/24 04:09 Nucleated RBC % (auto) 0 % 04/27/24 04:09 Nucleated RBCs # 0.0 /100WBC 04/27/24 04:09 PT 15.80 SECONDS (12.1-14.9) H 04/27/24 04:09 INR 1.22 (0.8-1.2) H 04/27/24 04:09 Specimen Type Arterial 04/27/24 05:12 Sample Site Brachial, right 04/27/24 05:12 ABG pH 7.21 (7.35-7.45) L 04/27/24 05:12 ABG pCO2 32.2 mmHg (35-45) L 04/27/24 05:12 ABG pO2 331.0 mmHg (80.0-100.0) H 04/27/24 05:12 ABG PO2/FiO2 Ratio 331 04/27/24 05:12 ABG HCO3 12.9 mmol/L (22-26) L 04/27/24 05:12 ABG O2 Saturation > 99.1 04/27/24 05:12 ABG Base Excess -13.8 mmol/L (-2.0-2.0) L 04/27/24 05:12 Sly Test N/a 04/27/24 05:12 A-a O2 Gradient 43.6 mmHg (5-10) H 04/27/24 05:12 Hematocrit 25.8 % (42-52) L 04/27/24 05:12 Hgb O2 Saturation 98.9 % (95-100) 04/27/24 05:12 Carboxyhemoglobin 1.3 %THgb (0.4-20.1) 04/27/24 05:12 Methemoglobin 0.4 % (0.4-1.5) 04/27/24 05:12 Total Hemoglobin 8.4 g/dL (14-18) L 04/27/24 05:12 Sodium 127.0 mmol/L (131-143) L 04/27/24 05:12 Potassium 8.0 mmol/L (3.5-5.0) H 04/27/24 05:12 Glucose 311.0 mg/dL (70-115) H 04/27/24 05:12 Ionized Calcium 1.5 mmol/L (1.1-1.4) H 04/27/24 05:12 O2 Delivery Device Bipap 04/27/24 05:12 FiO2 100.0 % 04/27/24 05:12 Weighbridge Operator ID [email or web address] 04/27/24 05:12 Sodium 129 mmol/L (136-145) L 04/27/24 04:09 Potassium 8.6 mmol/L (3.5-5.1) H* 04/27/24 05:20 Chloride 107 mmol/L (98-107) 04/27/24 04:09 Carbon Dioxide 13 mmol/L (22-29) L 04/27/24 04:09 Anion Gap 18.3 (5-19) 04/27/24 04:09 BUN 54 mg/dL (8-23) H 04/27/24 04:09 Creatinine 1.8 mg/dL (0.7-1.2) H 04/27/24 04:09 GFR Calculation 38.4 mL/min (90-130) L 04/27/24 04:09 Glucose 143 mg/dL (65-115) H 04/27/24 04:09 POC Glucose 218 mg/dL (70-110) H 04/27/24 06:58 Calculated Osmolality 285 mOsm/kg (285-295) 04/27/24 04:09 Calcium 8.1 mg/dL (8.5-10.5) L 04/27/24 04:09 Magnesium 2.4 mg/dL (1.7-2.3) H 04/27/24 05:20 Total Bilirubin 1.1 mg/dL (0.15-1.2) 04/27/24 04:09 AST 65 U/L (0-40) H 04/27/24 04:09 ALT 37 U/L (0-41) 04/27/24 04:09 Alkaline Phosphatase 181 U/L (40-130) H 04/27/24 04:09 Ammonia 72 umol/L (16-60) H 04/27/24 05:20 Troponin T Baseline 135 ng/L (0-15) H* 04/27/24 04:09 Total Protein 6.6 g/dL (6.6-8.7) 04/27/24 04:09 Albumin 3.4 g/dL (3.5-5.2) L 04/27/24 04:09 Globulin 3.2 g/dL (1.3-4.6) 04/27/24 04:09 Urine Color Dark yellow (Yellow) A 04/27/24 06:54 Urine Appearance Clear (CLEAR) 04/27/24 06:54 Urine pH 5.5 (5-7) 04/27/24 06:54 Ur Specific [place] 1.020 (1.005-1.030) 04/27/24 06:54 Urine Protein 2+ (Negative) A 04/27/24 06:54 Urine Glucose (UA) 1+ (Normal) H 04/27/24 06:54 Urine Ketones Negative (Negative) 04/27/24 06:54 Urine Blood 2+ (Negative) A 04/27/24 06:54 Urine Nitrate Negative (Negative) 04/27/24 06:54 Urine Bilirubin Negative (Negative) 04/27/24 06:54 Urine Urobilinogen 0.2 mg/dL (Negative) 04/27/24 06:54 Ur Leukocyte Esterase Negative (Negative) 04/27/24 06:54 Urine RBC 51-100 /hpf (0-2) H 04/27/24 06:54 Urine WBC 6-10 /hpf (0-5) 04/27/24 06:54 Ur Squamous Epith Cells 0-5 /hpf (0-5) 04/27/24 06:54 Amorphous Sediment Not Reportable 04/27/24 06:54 Urine Bacteria Trace /hpf (NONE) 04/27/24 06:54 Hyaline Casts 25.63 /lpf 04/27/24 06:54 Coarse Granular Casts 0-4 /lpf H 04/27/24 06:54 Hep Bs Antigen Non-reactive (Nonreactive) 04/27/24 05:20 Hep Bs Antibody < 3.5 (11.5-1000) L 04/27/24 05:20 Critical Care Time Critical Care Time: Critical Care Time: Yes Total Critical Care Time: 60 Attestation: The high probability of a clinically significant, sudden or life threatening deterioration of the patient's cardiovascular respiratory renal system(s) required my full and direct attention, intervention and personal management. The critical care time is as shown. This time is in addition to time spent performing any reported procedures but includes the following: [x] Data and vital sign review and interpretation [x] Patient assessment, examination and intervention [x] Documentation [x] Medication orders and management Discharge Plan Discharge Patient Disposition: Admitted As Inpatient Admit Provider: Ozzy Go Clinical Impression: Ventricular tachycardia, XIE (nonalcoholic steatohepatitis), Diabetes mellitus, Chronic kidney disease, KJ (acute kidney injury), Metabolic acidosis, Acute respiratory failure, Acute encephalopathy, Acute hyperkalemia Condition: Stable Sign Out Sign Out Data: Patient Sign Out occurred on 04/27/24 at 06:42. Patient's care was discussed, and care was transferred from Ede Nina DO to Gallito Carrington DO. Coding Level of Care Code ED Information Technology Auditor for Sanya Jeter
[2024-04-27 04:17] LABS: Basophils % 0.4 %; Eosinophils # 0.2 10^3/uL (0.0-0.8); Eosinophils % 1.5 %; Hematocrit 28.3 % (37-53); Lymphocytes # 0.3 10^3/uL (0.8-4.8); Mean Corpuscular HGB Conc 29.7 g/dL (30-55); Mean Corpuscular Volume 97.6 fl (82-101); Mean Platelet Volume 10.9 fL (7.4-10.4); Monocytes # 1.1 10^3/uL (0.2-0.9); Monocytes % 10.5 %; Neutrophils # 8.61 10^3/uL (1.8-7.7); Neutrophils % 84.2 %; Nucleated Red Blood Cells % 0 %; Platelet Count 120 10^3/cmm (157-399); Red Cell Distribution Width 15.8 % (12.1-15.1); White Blood Count 10.22 10^3/uL (3.29-11.43)
--- NOTE | 2024-04-27 04:21 | ECG_ITS ---
[employer] Test Date: 2024-04-27 Pat Name: Dong Diaz Department: Room: ICU12 Gender: Male Race Starter: : [id number] Requested By: Ede Nina Order Number: [id number] Papa MD: ARIEL DOMINIQUE Measurements Intervals Addy Rate: 89 P: 166 OK: 68 QRS: -21 QRSD: 214 T: 70 QT: 521 QTc: 636 Interpretive Statements SINUS RHYTHM WITH SHORT OK INTERVAL LEFT BUNDLE BRANCH BLOCK [120+ ms QRS DURATION, 80+ ms Q/S IN V1/V2, 85+ ms R IN I/aVL/V5/V6] PROLONGED QT INTERVAL CRITICAL TEST RESULT Compared to ECG 12/31/2022 14:28:49 Short OK interval now present Left bundle-branch block now present Prolonged QT interval now present Electronically Signed On 04-27-2024 20:59:26 CDT by ARIEL DOMINIQUE [email or web address]
[2024-04-27 04:28] LABS: INR 1.22 (0.8-1.2)
[2024-04-27 04:33] LABS: Alanine Aminotransferase 37 U/L (0-41); Albumin Level 3.4 g/dL (3.5-5.2); Alkaline Phosphatase 181 U/L (40-130); Anion Gap 18.3 (5-19); Aspartate Amino Transferase 65 U/L (0-40); Blood Urea Nitrogen 54 mg/dL (8-23); Calcium 8.1 mg/dL (8.5-10.5); Carbon Dioxide 13 mmol/L (22-29); Chloride 107 mmol/L (98-107); Globulin 3.2 g/dL (1.3-4.6); Glomerular Filtration Rate 38.4 mL/min (90-130); Glucose 143 mg/dL (65-115); Magnesium 2.4 mg/dL (1.7-2.3); Osmolality Calculated 285 mOsm/kg (285-295); Sodium 129 mmol/L (136-145); Total Bilirubin 1.1 mg/dL (0.15-1.2); Total Protein 6.6 g/dL (6.6-8.7)
[2024-04-27 04:57] LABS: Potassium 9.3 mmol/L (3.5-5.1)
[2024-04-27 05:00] LABS: Troponin(5th) Baseline 135 ng/L (0-15)
[2024-04-27] MEDS: dextrose 10% 250 ML 1000 ML IV (05:00)
[2024-04-27] MEDS: insulin regular-human 100 units/1 mL 10 UNIT IVP (05:08)
--- NOTE | 2024-04-27 05:11 | ECG_ITS ---
[employer] Test Date: 2024-04-27 Pat Name: Dong Diaz Department: Room: ICU12 Gender: Male Llama Farmer: : 1960 Requested By: Ede Nina Order Number: [id number] Reading MD: ARIEL DOMINIQUE Measurements Intervals [place] Rate: 68 P: 0 MO: 0 QRS: 136 QRSD: 37 T: 50 QT: 355 QTc: 379 Interpretive Statements SINUS RHYTHM WITH HIGH GRADE AV BLOCK RIGHT AXIS DEVIATION [QRS AXIS > 100] LOW QRS VOLTAGE [QRS DEFLECTION < 0.5/1.0 mV IN LIMB/CHEST LEADS] POSSIBLE RIGHT VENTRICULAR CONDUCTION DELAY [RSR (QR) IN V1/V2] ANTERIOR MYOCARDIAL INFARCTION , POSSIBLY ACUTE [40+ ms Q WAVE AND/OR ST/T ABNORMALITY IN V3/V4] MARKED ST ELEVATION, CONSIDER SEPTAL INJURY [MARKED ST ELEVATION W/O NORMALLY INFLECTED T-WAVE IN V1/V2] MARKED ST ELEVATION, CONSIDER INFERIOR INJURY [MARKED ST ELEVATION W/O Electronically Signed On 04-27-2024 21:16:46 CDT by ARIEL DOMINIQUE [id number]
[2024-04-27 05:22] LABS: ABG PCO2 32.2 mmHg (35-45); ABG PH Result 7.21 (7.35-7.45); Alveolar-Arterial Oxygen Gradi 43.6 mmHg (5-10); Arterial Blood Gas Hematocrit 25.8 % (42-52); Base Excess ABG -13.8 mmol/L (-2.0-2.0); Blood Gas Sample Site Brachial, right; Blood Gas Sample Type Arterial; Carboxyhemoglobin 1.3 %THgb (0.4-20.1); HCO3 ABG 12.9 mmol/L (22-26); HGB O2 Sat 98.9 % (95-100); Ionized Calcium Level - ABG 1.5 mmol/L (1.1-1.4); Methemoglobin 0.4 % (0.4-1.5); Oxygen Device BIPAP; Oxygen Saturation ABG > 99.1; PO2 FiO2 Ratio Arterial Blood 331; Total Hemoglobin 8.4 g/dL (14-18)
[2024-04-27] MEDS: albuterol 2.5 mg/3 mL Neb 7.5 MG INHALATION (05:34)
[2024-04-27 05:42] LABS: Magnesium 2.4 mg/dL (1.7-2.3)
[2024-04-27 05:44] LABS: Ammonia 72 umol/L (16-60)
[2024-04-27 05:50] LABS: Potassium 8.6 mmol/L (3.5-5.1)
--- NOTE | 2024-04-27 06:17 | P.CONIM_ITS ---
Providers/Reason For Consult 2 Consulting Physician/Specialty*: kommana/Nephrology Reason for Consult*: KJ, Hyperkalemia Primary Care Provider: THEODORE Dailey History of Present Illness History of Present Illness Dong Diaz is a 63 year old male Patient is a 63-year-old male with past medical history significant for hypertension, diabetes, chronic kidney disease with creatinine in the mid 1 range, liver cirrhosis with portal hypertension history of TAVR procedure, presented to the emergency department due to acute respiratory distress. He recently had paracentesis with 17 L removed. He was also recently biopsied for liver mass. In the emergency department he was noted to be hypoxic was placed on BiPAP, lab data significant for for severe hyperkalemia with a potassium more than 9. He received medical management including IV bicarb insulin dextrose and calcium, also went into V-fib briefly for 3 times and was defibrillated successfully. Emergent temporary HD catheter was placed and is undergoing dialysis currently. He is currently on BiPAP. Blood pressures in the 100s range systolic. Review of Systems 2 Narrative: negative Medications/Allergies Home Medications Medication Instructions Recorded Confirmed Last Taken Type cholecalciferol (vitamin D3) 50 50 mcg PO DAILY 11/13/21 04/27/24 04/15/24 History mcg (2,000 unit) capsule sildenafil 100 mg tablet 100 mg PO DAILY PRN Sexual Activity 11/13/21 04/14/24 04/15/24 History ferrous sulfate 325 mg (65 mg 325 mg PO DAILY 11/27/21 04/27/24 04/15/24 History iron) tablet melatonin 5 mg capsule 10 mg PO BEDTIME PRN Sleep 11/27/21 04/27/24 04/15/24 History mecobalamin (vitamin B12) 1,000 1,000 mcg PO DAILY 11/05/22 04/14/24 04/15/24 History mcg chewable tablet (B12 Active) multivitamin 1 cap PO DAILY 11/25/23 04/14/24 04/15/24 History cholestyramine-aspartame 4 gram 1 ea PO DAILY 02/05/24 04/14/24 04/15/24 History oral powder for susp in a packet ascorbic acid (vitamin C) 500 mg 500 mg PO DAILY 02/16/24 04/27/24 04/15/24 History capsule aspirin 81 mg tablet,delayed 81 mg PO DAILY #90 tabs 02/16/24 04/14/24 04/15/24 Rx release (Adult Aspirin Regimen) pyridoxine (vitamin B6) 50 mg 50 mg PO BID 02/16/24 04/27/24 04/15/24 History tablet (Vitamin B-6) insulin degludec 200 unit/mL (3 40 unit SUBCUT .QAM 02/17/24 04/14/24 04/15/24 History mL) subcutaneous pen (Tresiba FlexTouch U-200 insulin) cyanocobalamin (vitamin B-12) 500 500 mcg PO DAILY 02/19/24 04/27/24 04/15/24 History mcg tablet magnesium 200 mg tablet 200 mg PO DAILY 02/19/24 04/14/24 04/15/24 History pravastatin 10 mg tablet 10 mg PO DAILY 03/03/24 04/14/24 04/15/24 History dapagliflozin propanediol 10 mg 10 mg PO DAILY 03/15/24 04/14/24 04/15/24 History tablet (Farxiga) trazodone 50 mg tablet 50 mg PO .at hs #30 tabs 03/15/24 04/14/24 04/15/24 Rx loratadine 10 mg tablet 10 mg PO BID #180 tabs 04/16/24 Unknown Rx metformin 1,000 mg tablet 1,000 mg PO DAILY #135 tabs 04/16/24 Unknown Rx sodium bicarbonate 650 mg tablet 650 mg PO BID #180 tabs 04/16/24 Unknown Rx dulaglutide 3 mg/0.5 mL See Rx Instructions .Route 04/23/24 Unknown Rx subcutaneous pen injector .COMPLEX #4 mL (Trulicity) Allergies Allergy/AdvReac Type Severity Reaction Status Date / Time No Known Allergies Allergy Verified 04/14/24 11:56 Current Medications Generic Name Dose Route Start Last Admin Trade Name Freq PRN Reason Stop Dose Admin Amiodarone HCl/Dextrose 360 mg in 200 mls @ 0 mls/hr 04/27/24 05:08 04/27/24 05:34 Nexterone IV 1 mg/min .Q0M MARY 33.33 mls/hr Administration Protocol Per Protocol PFSH Acute 2 PFSH: Medical History Liver cancer Elevated liver enzymes Low vitamin D level Portal hypertension Chronic kidney disease Diabetes mellitus Hyperlipidemia Hypertriglyceridemia Chronic cough Surgical History S/P TAVR (transcatheter aortic valve replacement) History of esophageal surgery S/P tonsillectomy S/P LASIK surgery S/P sinus surgery Family History Unknown No problems noted. Social History Smoking and tobacco/nicotine status: former use of tobacco/nicotine Alcohol intake: never Substance/Drug Use: never Adopted: Yes (Biological mother's family has hx of hypertension) Vitals/I&O/Wt Last Vital Signs Temp 96.4 F L 04/27/24 03:45 Pulse 88 04/27/24 05:34 Resp 25 H 04/27/24 05:34 BP 125/71 04/27/24 04:13 Pulse Ox 99 04/27/24 05:34 O2 Del Method BiPAP 04/27/24 05:34 O2 Flow Rate 4 04/27/24 03:45 FiO2 100 04/27/24 05:34 Physical Exam 2 Narrative: awake , alert No distress HEENT S1S2 RRR per report Lungs clear per report No edema Data 04/27/24 04:09 04/27/24 05:20 A&P Assessment and plan (1) KJ (acute kidney injury): 1. Acute on chronic kidney disease: Now presented with severe hyperkalemia, emergent hemodialysis today,. Likely will need HD again tomorrow. Also has volume overload, will do ultrafiltration as tolerated. 2. Severe hyperkalemia: Placed on low K diet and will discharge patient on Lokelma due to recurrent hyperkalemia 3. History of liver cirrhosis, portal hypertension and requiring frequent paracentesis 4. Metabolic acidosis: HD as above 5. Hyponatremia: Sodium 129, monitor after HD Patient evaluated using audiovisual cart. time spent 40 min Consult Attestations 2 Medical Necessity Statement: per edwige Coding Level of Care Code Acute Code for [facility] Fwd Diagnoses KJ (acute kidney injury) N17.9
[2024-04-27 06:32] LABS: Hepatitis B Surface AB < 3.5 (11.5-1000); Hepatitis B Surface Antigen Non-Reactive (Nonreactive)
[2024-04-27] MEDS: insulin regular-human 100 units/1 mL 5 UNIT IVP ×2 (06:32→06:56)
--- NOTE | 2024-04-27 06:33 | XRR_ITS ---
PROCEDURE INFORMATION: Exam: XR Chest Exam date and time: 04/27/2024 6:40 AM Age: 63 years old Clinical indication: Other vascular access device placement or adjustment; Other: Central line; Additional info: Central line placement TECHNIQUE: Imaging protocol: Radiologic exam of the chest. Views: 1 view. COMPARISON: CR (CHEST, ) 04/27/2024 4:17 AM FINDINGS: Tubes, catheters and devices: Central venous catheter seen on the right with its tip overlying the SVC/right atrial junction. Lungs: There may be mild central vascular congestion. Pleural spaces: Small right pleural effusions suspected. No pneumothorax is identified. Heart/Mediastinum: The heart is slightly enlarged. Diaphragm: There is elevation of the right hemidiaphragm. Bones/joints: Unremarkable. XR/XR chest 1V portable 02100 IMPRESSION: 1. Cardiomegaly with mild vascular congestion suspected. 2. Small right pleural effusion.
--- NOTE | 2024-04-27 06:34 | XRR_ITS ---
PROCEDURE INFORMATION: Exam: XR Pelvis Exam date and time: 04/27/2024 6:46 AM Age: 63 years old Clinical indication: Device placement; Other: Central; Additional info: 1v for line placement TECHNIQUE: Imaging protocol: Radiologic exam of the pelvis. Views: 1 or 2 view. COMPARISON: No relevant prior studies available. FINDINGS: Tubes, catheters and devices: There is a left femoral catheter present. Bones/joints: Unremarkable. No acute fracture. Soft tissues: Unremarkable. XR/XR pelvis 1-2V* [id number] IMPRESSION: 1. Left femoral catheter.
--- NOTE | 2024-04-27 06:42 | PC.NURSE ---
Pt noted to be bradycardic on monitor at 0457. MD and nursing staff into room at this time. Order of events: 0457 - 1 mg atropine given IVP - HR 28 BPM 0459 - 2 gm calcium given IVP pt noted to be in V fib at 0501. 0502 - MD advised 120 J shock 0503 - MD advised 120 J shock 0505 - MD advised 200 J shock 0504 - 150 amiodarone IVP 0508 - dopamine IV drip started @ 5 mcg 0510 - 50 mEq bicarb IVP 0515 - 1 amp dextrose IVP given 10 unit insulin IVP Pt moved from ED RM 15 to ED RM 11. Pt placed on BiPAP. Dialysis catheter placed emergent by ED physician. Central line placed. Durán catheter placed by nursing staff all other medication administrations documented in MAR appropriately
--- NOTE | 2024-04-27 06:55 | ECG_ITS ---
[employer] Test Date: 2024-04-27 Pat Name: Dong Diaz Department: Room: ICU12 Gender: Male Hose Inspector: : 1960 Requested By: Daniel Moreno Order Number: [id number] Reading MD: ARIEL DOMINIQUE Measurements Intervals [place] Rate: 78 P: 0 MI: 0 QRS: 89 QRSD: 166 T: 49 QT: 450 QTc: 514 Interpretive Statements SINUS RHYTHM LEFT BUNDLE BRANCH BLOCK [120+ ms QRS DURATION, 80+ ms Q/S IN V1/V2, 85+ ms R IN I/aVL/V5/V6] Hyperacute T wave , consider ischemia or hyperkalemia Compared to ECG 04/27/2024 05:11:16 Left bundle-branch block now present Right-axis deviation no longer present Myocardial infarct finding no longer present ST (T wave) deviation no longer present Electronically Signed On 04-27-2024 21:09:57 CDT by ARIEL DOMINIQUE [id number]
[2024-04-27 07:10] LABS: Bilirubin Urine Negative (Negative); Blood Urine 2+ (Negative); Glucose Urine UA 1+ (Normal); Ketones Urine Negative (Negative); Leukocyte Esterase Urine Negative (Negative); Nitrate Urine Negative (Negative); Protein Urine 2+ (Negative); Urine Appearance Clear (CLEAR); Urine Color Dark Yellow (Yellow); Urobilinogen Urine 0.2 mg/dL (Negative); pH Urine 5.5 (5-7)
[2024-04-27 07:13] LABS: Add Urine Microscopic? YES; Hyaline Casts Urine 25.63 /lpf; RBC Urine 51-100 /hpf (0-2); Squamous Epithelial Cell Urine 0-5 /hpf (0-5)
[2024-04-27 07:28] LABS: Add Urine Culture? Yes; Bacteria Urine TRACE /hpf; Coarse Granular Casts Urine 0-4 /lpf; UA Slide Review UA Slide Review Perf
--- NOTE | 2024-04-27 07:45 | P.HP_ITS ---
Providers/Chief Complaint 2 Admitting Physician: Daniel Barrera MD, hospitalist Primary Care Provider: THEODORE Dailey Chief Complaint: RESP. DISTRESS History of Present Illness Dong Diaz is a 63 year old male presenting to the emergency department with respiratory distress. He reports he was recently in [facility] last week, and had 17 L removed by paracentesis. He reports he has been having issues with significant hyperkalemia, and was on a medicine up there and treated for this, but could not afford the medication on discharge. He reports he does not take potassium, and had previously been on Aldactone but this had been discontinued weeks ago. Has had cirrhosis for quite a while. Recent diagnosis of liver cancer by biopsy last week, he does not know his options for treatment currently. No recent fever, blood in stool. In the emergency department he came in markedly hyperkalemic. He received bicarb, insulin and glucose, IV fluids, calcium, went into V-fib 3 times and was defibrillated and placed on amiodarone, was bradycardic at 1 time and on dopamine and received atropine which have since been discontinued. Was placed on BiPAP. I do not see his EKGs but I suspect they were done in the ER. They have not yet at the system. Will order another baseline. Review of Systems 2 General: Reports: 10 or more systems reviewed and unremarkable except in HPI and below Card: Denies: chest pain Resp: Reports: dyspnea Medications/Allergies Home Medications Medication Instructions Recorded Confirmed Last Taken Type cholecalciferol (vitamin D3) 50 50 mcg PO DAILY 11/13/21 04/14/24 04/15/24 History mcg (2,000 unit) capsule sildenafil 100 mg tablet 100 mg PO DAILY PRN Sexual Activity 11/13/21 04/14/24 04/15/24 History ferrous sulfate 325 mg (65 mg 325 mg PO DAILY 11/27/21 04/14/24 04/15/24 History iron) tablet melatonin 5 mg capsule 10 mg PO PRN PRN Sleep 11/27/21 04/14/24 04/15/24 History mecobalamin (vitamin B12) 1,000 1,000 mcg PO DAILY 11/05/22 04/14/24 04/15/24 History mcg chewable tablet (B12 Active) multivitamin 1 cap PO DAILY 11/25/23 04/14/24 04/15/24 History cholestyramine-aspartame 4 gram 1 ea PO DAILY 02/05/24 04/14/24 04/15/24 History oral powder for susp in a packet ascorbic acid (vitamin C) 500 mg 500 mg PO DAILY 02/16/24 04/14/24 04/15/24 History capsule aspirin 81 mg tablet,delayed 81 mg PO DAILY #90 tabs 02/16/24 04/14/24 04/15/24 Rx release (Adult Aspirin Regimen) pyridoxine (vitamin B6) 50 mg 50 mg PO BID 02/16/24 04/14/24 04/15/24 History tablet (Vitamin B-6) insulin degludec 200 unit/mL (3 40 unit SUBCUT .QAM 02/17/24 04/14/24 04/15/24 History mL) subcutaneous pen (Tresiba FlexTouch U-200 insulin) cyanocobalamin (vitamin B-12) 500 500 mcg PO DAILY 02/19/24 04/14/24 04/15/24 History mcg tablet magnesium 200 mg tablet 200 mg PO DAILY 02/19/24 04/14/24 04/15/24 History pravastatin 10 mg tablet 10 mg PO DAILY 03/03/24 04/14/24 04/15/24 History dapagliflozin propanediol 10 mg 10 mg PO DAILY 03/15/24 04/14/24 04/15/24 History tablet (Farxiga) trazodone 50 mg tablet 50 mg PO .at hs #30 tabs 03/15/24 04/14/24 04/15/24 Rx loratadine 10 mg tablet 10 mg PO BID #180 tabs 04/16/24 Unknown Rx metformin 1,000 mg tablet 1,000 mg PO DAILY #135 tabs 04/16/24 Unknown Rx sodium bicarbonate 650 mg tablet 650 mg PO BID #180 tabs 04/16/24 Unknown Rx dulaglutide 3 mg/0.5 mL See Rx Instructions .Route 04/23/24 Unknown Rx subcutaneous pen injector .COMPLEX #4 mL (Trulicity) Allergies Allergy/AdvReac Type Severity Reaction Status Date / Time No Known Allergies Allergy Verified 04/14/24 11:56 PFSH Acute 2 PFSH: Medical History Liver cancer Elevated liver enzymes Low vitamin D level Portal hypertension Chronic kidney disease Diabetes mellitus Hyperlipidemia Hypertriglyceridemia Chronic cough Surgical History S/P TAVR (transcatheter aortic valve replacement) History of esophageal surgery S/P tonsillectomy S/P LASIK surgery S/P sinus surgery Family History Unknown No problems noted. Social History Smoking and tobacco/nicotine status: former use of tobacco/nicotine Alcohol intake: never Substance/Drug Use: never Adopted: Yes (Biological mother's family has hx of hypertension) Vitals/I&O/Wt Last Vital Signs Temp 96.4 F L 04/27/24 03:45 Pulse 77 04/27/24 07:05 Resp 29 H 04/27/24 07:05 BP 124/64 04/27/24 07:05 Pulse Ox 97 04/27/24 07:05 O2 Del Method BiPAP 04/27/24 06:45 O2 Flow Rate 15 04/27/24 04:00 FiO2 55 04/27/24 07:05 04/26/24 04/27/24 04/27/24 22:59 06:59 14:59 Intake Total 250 / 250 Balance 250 / 250 Physical Exam 2 Narrative: General exam is white male, who appears short of breath with moderate retractions even on BiPAP HEENT: Atraumatic and normocephalic. BiPAP noted Neck is supple Cardiovascular regular rate and rhythm, no murmur Lungs diminished breath sounds bilaterally Abdomen, ascites with fluid wave noted. demonstrates Durán Extremities 2-3+ pitting edema bilaterally Skin no rash Neuro no obvious focal deficits Urinary Catheter Management: Durán: Cath Placed During This Visit: yes Urinary Catheter Date of Insertion: 04/27/24 Urinary Catheter Time of Insertion: 06:40 Data 04/27/24 04:09 04/27/24 05:20 Other Labs: INR 1.22 Initial ABG 7.21, 32, 331 on BiPAP at 100% Initial CMP demonstrated sodium of 129, carbon dioxide of 13, creatinine 1.8, anion gap 18, magnesium 2.4, calcium 8.1, albumin 3.4, AST 65, bilirubin 1.1, troponin 135. Urinalysis demonstrated 51-100 red blood cells, 6-10 whites, suspect traumatic Durán insertion Chest x-ray cardiomegaly, likely bilateral infusions by my read EKG is pending I have ordered blood cultures A&P Assessment and plan (1) Hyperkalemia: Patient presents with severe hyperkalemia Calcium, bicarb, fluids, insulin and glucose, albuterol all used in the emergency department Nephrology has been consulted for emergent dialysis and the dialysis catheter was placed in the groin Likely has arrhythmia is secondary to hyperkalemia Patient relates he has been hyperkalemic at a recent hospital stay at [facility]. Will request records. He reports he could not afford the medication he was discharged with to lower his potassium on a chronic basis. He denies being on any medication that is contributing to hyperkalemia but, but medicine list is still being reconciled. He reports he is not ingesting significant bouts amounts of potassium. Repeat potassium following treatment with dialysis Monitor for any further rhythm changes. (2) KJ (acute kidney injury): Patient presents with acute kidney injury Durán has been placed Request records at [facility]. Suspect he has had quite a bit of imaging lately of his abdomen secondary to recent diagnosis of malignancy. Currently MAP is 95, and must entertain diagnosis of hepatorenal syndrome. Albumin will be started secondary to possibility of SBP. If blood pressure decreases, consider addition of norepinephrine. He is currently very fluid overloaded compromising his respiratory status so significant amounts of fluid are not entertained at this time. CMP daily Consider renal ultrasound or CT renal protocol if imaging reports cannot be obtained from [facility] (3) Metabolic acidosis: Patient with significant metabolic acidosis on arrival secondary to acute kidney injury. Monitor for improvement. Doubt DKA but this can occasionally occur with low blood sugars on the diabetic medications she is purported to be on. Will go ahead and check a serum ketone level. Either way, anion gap was only slightly elevated (4) Hyponatremia: Patient with significant hyponatremia Check TSH and cortisol Likely secondary to renal dysfunction and/or cirrhosis Continue to monitor (5) Acute respiratory failure: Patient presents with acute respiratory failure. This is likely secondary to fluid overload, acidosis in combination Continue BiPAP Fluid removal with dialysis Wean oxygen as tolerated (6) Ventricular fibrillation: Patient with recurrent ventricular fibrillation requiring defibrillation Calcium has been given Monitor for recurrence Amiodarone drip started Likely secondary to hyperkalemia. If this is corrected, no further arrhythmias, consider discontinuing amiodarone in 24 to 48 hours. (7) Acute encephalopathy: Patient with acute encephalopathy on arrival. This appears to be improving. Consistent with acute metabolic encephalopathy. Continue to monitor. (8) Cirrhosis of liver: Patient with significant cirrhosis of the liver, with thrombocytopenia and anemia and hyponatremia that all go along with this. This brings into question possibility of SBP secondary to frequent paracentesis Will place empirically on cefepime, perform paracentesis when able, obtain blood cultures, placed on albumin (9) Diabetes mellitus: Sliding-scale insulin, doubt DKA Qualifiers: Diabetes mellitus type: type 2 Diabetes mellitus termite control servicer insulin use: without termite control servicer use Diabetes mellitus complication status: without complication Qualified Code(s): E11.9 - Type 2 diabetes mellitus without complications (10) Anemia: Patient with significant anemia on arrival Monitor daily Put on Protonix He is known to have esophageal varices, and from his EGD pictures a year ago 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 Will entertain in the next 24 to 48 hours. Plan History of TAVR Multiple other medical problems as outlined in past medical history Full code currently. Patient request to be decision-maker should he not be able to make decisions. He does not want to proceed on with life should his mental function be significantly impaired. SCDs for DVT prophylaxis, pharmacologic contraindicated with cirrhosis, anemia, varices Attestations 2 Medical Necessity Statement*: Will need greater than 2 midnight stay for evaluation and treatment of severe hyperkalemia, requiring emergent dialysis, and this patient with multiple endorgan dysfunctions. Critical Care Time: The high probability of a clinically significant, sudden or life threatening deterioration of the patient's [renal, hepatic, infectious, cardiovascular] s ystem(s) required my full and direct attention, intervention and personal management. The critical care time is as shown. This time is in addition to time spent performing any reported procedures but includes the following: [x] Data and vital sign review and interpretation [x] Patient assessment, examination and intervention [x] Documentation [x] Medication orders and management Critical Care Time (min): 77 Coding Level of Care Code Critical Care >/= 30 minutes Critical care time (in minutes): 77 The high probability of a clinically significant, sudden or life threatening deterioration, as referenced in this documentation, required my full and direct attention, intervention and personal management. The critical care time shown is in addition to time spent performing any reported separately billable procedures and includes the following: [x] Data and vital sign review and interpretation [x ] Patient assessment, examination and intervention [x] Medication orders and management [x] Patient/Family updates as able [x] Care Coordination and Documentation. Diagnoses Hyperkalemia E87.5 KJ (acute kidney injury) N17.9 Metabolic acidosis E87.20 Hyponatremia E87.1 Acute respiratory failure J96.00 Ventricular fibrillation I49.01 Acute encephalopathy G93.40 Cirrhosis of liver K74.60 Type 2 diabetes mellitus without complication, without long-term current use of insulin E11.9 Diabetes mellitus type: type 2 Diabetes mellitus fdc insulin use: without fdc use Diabetes mellitus complication status: without complication Anemia D64.9 Ascites R18.8
[2024-04-27 07:52] LABS: Covid PCR NEGATIVE (Negative); Influenza A NEGATIVE (Negative); Influenza B NEGATIVE (Negative); Respiratory Syncytial Virus Ce NEGATIVE (Negative)
[2024-04-27] MEDS: heparin, porcine 1,000 unit/mL INJ 10 mL 1000 UNIT IV (08:00)
--- NOTE | 2024-04-27 08:04 | USCV_ITS ---
Dong Diaz Age: 63 Gender: M : 1960 Exam Date: 04/27/2024 13:50 Ordering Phys: Daniel Barrera MD Technologist: CT Exam Location[place] [facility] [place] Indication: BP: 104 / 42 HR: 65 Rhythm: Sinus Technical Quality: Adequate MEASUREMENTS (Male / Female) Normal Values 2D ECHO LVOT Diameter 2.1 cm LV Ejection Fraction MOD 4C 64.4 % LV Ejection Fraction MOD 2C 63.0 % LV Ejection Fraction 2C AL 64.6 % LA Diameter 4.2 cm RA Systolic Volume 4C AL 58.8 ml RA Systolic Volume 4C MOD 58.5 ml LA Sys Volume AL 122.6 cm cubed LA Sys Volume Index AL 48.0 cm cubed/m squared Aorta at Sinotubular Diameter 2.3 cm DOPPLER AV Peak Velocity 277.0 cm/s LVOT Peak Velocity 163.0 cm/s AV Area Cont Eq vti 2.2 cm squared AV Area Cont Eq pk 2.0 cm squared MV Peak Velocity 199.0 cm/s MV Area PHT 2.2 cm squared Mitral E to A Ratio 1.1 TV Peak Velocity 307.0 cm/s TR Peak Velocity 318.0 cm/s TR Peak Gradient 40.4 mmHg TV Peak E Velocity 95.0 cm/s Right Atrial Pressure 3.0 mmHg Pulmonary Artery Systolic Pressu 43.4 mmHg PV Peak Velocity 170.3 cm/s FINDINGS Left Ventricle Normal left ventricular size and systolic function, EF 64%.. Mild left ventricular hypertrophy. No regional wall motion abnormalities. Grade III/IV diastolic dysfunction (restrictive filling pattern), severely elevated filling pressures. Right Ventricle Normal right ventricular size and systolic function. Right Atrium Normal right atrial size. Left Atrium Moderately increased left atrial size. Mitral Valve Mild mitral annular calcification. Mild mitral valve regurgitation.-eccentric Aortic Valve Possible bioprosthetic valve at the aortic position, well- seated. Trace to mild perivalvular regurgitation. The peak velocity at the aortic valve was 2.68 m/s. The peak gradient of 29 mmHg Tricuspid Valve Mild tricuspid valve regurgitation. Estimated pulmonary artery peak systolic pressure 43 mmHg Pulmonic Valve No gross abnormalities noted Pericardium No pericardial effusion. Aorta Normal aortic annulus size. IVC Dilated IVC with decreased respiratory variation. CONCLUSIONS Normal left ventricular size and systolic function, EF 64%.. Mild left ventricular hypertrophy. No regional wall motion abnormalities. Grade III/IV diastolic dysfunction (restrictive filling pattern), severely elevated filling pressures. Possible bioprosthetic valve at the aortic position, well- seated. Trace to mild perivalvular regurgitation. The peak velocity at the aortic valve was 2.68 m/s. The peak gradient of 29 mmHg. Mild tricuspid valve regurgitation. Mild mitral annular calcification. Mild mitral valve regurgitation.-eccentric. Estimated pulmonary artery peak systolic pressure [address] Sheeba Escalera MD FACC (Electronically Signed) Final Date: 27 April 2024 19:12 S
[2024-04-27 08:05] LABS: Glucose Point of Care 158 mg/dL (70-110)
[2024-04-27 08:05] LABS: Glucose Point of Care 255 mg/dL (70-110)
[2024-04-27 08:05] LABS: Glucose Point of Care 218 mg/dL (70-110)
[2024-04-27 08:05] LABS: Glucose Point of Care 299 mg/dL (70-110)
[2024-04-27] MEDS: pantoprazole 40 mg SDV IVP ×2 (08:10→21:10)
[2024-04-27] MEDS: albumin 25 G/100 ML BAG 60 G IV ×2 (08:10→15:09)
[2024-04-27] MEDS: cefepime 2,000 MG in sodium chloride 0.9% (plus) 50 ML 100 MG IV ×2 (08:10→21:09)
--- NOTE | 2024-04-27 08:48 | PC.PHAR ---
Negin [facility] faxing current med list 04/27/24 8:45am
[2024-04-27 08:56] LABS: Ketone (Acetest) Serum Negative (Negative)
[2024-04-27 09:11] LABS: Troponin 5 2HR 365.9 ng/L (0-15); Troponin 5 2HR Delta 230.9 ABS# (0-10)
[2024-04-27 09:15] LABS: Cortisol Random 23.91 ug/dL (2.47-19.5); Thyroid Stimulating Hormone 6.61 uIU/mL (0.27-4.20)
--- NOTE | 2024-04-27 09:17 | PC.PHAR ---
Pt on bipap in ED-Transported to ICU. Med rec completed verbally by Negin Wilkerson with last fill dates and days supply. Pt has several otc vitamins the pharmacy us unable to verify, which were left on his med list.
--- NOTE | 2024-04-27 09:56 | ECG_ITS ---
[facility] [place] [facility] 2024-04[facility]27 Pat Name: Dong Diaz Department: Room: ICU12 Gender: Male Costumed Character: : 1960 Requested By: Ede Nina Order Number: [id number] Reading MD: ARIEL DOMINIQUE Measurements Intervals [place] Rate: 76 P: 24 ME: 207 QRS: 0 QRSD: 99 T: 30 QT: 389 QTc: 439 Interpretive Statements SINUS RHYTHM Compared to ECG 04/27/2024 06:55:29 Left bundle-branch block no longer present Electronically Signed On 04-27-2024 21:05:53 CDT by ARIEL DOMINIQUE [email or web address]
[2024-04-27 10:45] LABS: Troponin 5 6HR 458.7 ng/L (0-15); Troponin 5 6HR Delta 323.7 ng/L (0-12)
[2024-04-27 12:27] LABS: Glucose Point of Care 129 mg/dL (70-110)
[2024-04-27 13:41] LABS: Anion Gap 15.3 (5-19); Blood Urea Nitrogen 34 mg/dL (8-23); Calcium 8.1 mg/dL (8.5-10.5); Carbon Dioxide 22 mmol/L (22-29); Chloride 103 mmol/L (98-107); Glomerular Filtration Rate 51.4 mL/min (90-130); Glucose 115 mg/dL (65-115); Osmolality Calculated 287 mOsm/kg (285-295); Potassium 6.3 mmol/L (3.5-5.1); Sodium 134 mmol/L (136-145)
[2024-04-27] MEDS: sodium polystyrene sulfonate 15 gm/60 mL Btl 30 GM PO (15:09)
[2024-04-27] MEDS: insulin lispro 100 unit/1 mL SUBCUT ×2 (17:53→21:37)
[2024-04-27] MEDS: norepinephrine 4 MG/250 ML BAG 7.5 MG IV (19:00)
[2024-04-27 20:46] LABS: Anion Gap 16.1 (5-19); Blood Urea Nitrogen 41 mg/dL (8-23); Calcium 7.9 mg/dL (8.5-10.5); Carbon Dioxide 20 mmol/L (22-29); Chloride 102 mmol/L (98-107); Creatinine Clr Calc Pharmacy 59.9083; Glomerular Filtration Rate 38.4 mL/min (90-130); Glucose 191 mg/dL (65-115); Osmolality Calculated 289 mOsm/kg (285-295); Potassium 6.1 mmol/L (3.5-5.1); Sodium 132 mmol/L (136-145)
[2024-04-27 21:36] LABS: Glucose Point of Care 182 mg/dL (70-110)
[2024-04-27] MEDS: sodium polystyrene sulfonate 15 gm/60 mL Btl PO (21:37)
[2024-04-28] VITALS (183 sets, daily range): BP systolic 86–148; BP diastolic 39–78; PULSE 61–91; RESP 9–32; TEMP 36.6–37.1; O2SAT 90–100
[2024-04-28] MEDS: albumin 25 G/100 ML BAG 60 G IV ×2 (00:54→08:18)
[2024-04-28] MEDS: norepinephrine 4 MG/250 ML BAG 45 MG IV ×2 (01:35→06:44)
[2024-04-28 04:20] LABS: Basophils % 0.1 %; Eosinophils # 0.3 10^3/uL (0.0-0.8); Eosinophils % 3.9 %; Hematocrit 21.6 % (37-53); Lymphocytes # 0.4 10^3/uL (0.8-4.8); Lymphocytes % 5.3 %; Mean Corpuscular HGB Conc 30.1 g/dL (30-55); Mean Corpuscular Hemoglobin 28.6 pg (27-33); Mean Corpuscular Volume 95.2 fl (82-101); Mean Platelet Volume 11.3 fL (7.4-10.4); Monocytes % 13.5 %; Neutrophils # 5.93 10^3/uL (1.8-7.7); Neutrophils % 76.7 %; Nucleated Red Blood Cells % 0 %; Platelet Count 81 10^3/cmm (157-399); Red Blood Count 2.27 10^6/uL (3.85-5.65); Red Cell Distribution Width 16.1 % (12.1-15.1); White Blood Count 7.73 10^3/uL (3.29-11.43)
[2024-04-28 04:26] LABS: INR 1.43 (0.8-1.2)
[2024-04-28 04:29] LABS: Slide Review Slide Review Perform
[2024-04-28 04:38] LABS: Alanine Aminotransferase 31 U/L (0-41); Albumin Level 3.3 g/dL (3.5-5.2); Alkaline Phosphatase 128 U/L (40-130); Anion Gap 15.5 (5-19); Aspartate Amino Transferase 65 U/L (0-40); Blood Urea Nitrogen 42 mg/dL (8-23); Carbon Dioxide 22 mmol/L (22-29); Chloride 99 mmol/L (98-107); Creatinine Clr Calc Pharmacy 56.7553; Globulin 2.1 g/dL (1.3-4.6); Glomerular Filtration Rate 36.1 mL/min (90-130); Glucose 105 mg/dL (65-115); Magnesium 2.1 mg/dL (1.7-2.3); Osmolality Calculated 283 mOsm/kg (285-295); Potassium 5.5 mmol/L (3.5-5.1); Sodium 131 mmol/L (136-145); Total Protein 5.4 g/dL (6.6-8.7)
--- NOTE | 2024-04-28 06:24 | PC.NURSE ---
Pt had large soft stool earlier in shift. Large amount of edwina blood and stool black and jelly-like, mixed with tarry stool. Contacted Dr. Go and made aware, stool obtained for hemocult, which was positive. AM labs revealed drop in hgb to 6.5. Dr. Go made aware, ordered one unit PRBC, consent obtained, and infusing at this time.
[2024-04-28 07:48] LABS: Glucose Point of Care 125 mg/dL (70-110)
[2024-04-28] MEDS: pantoprazole 40 mg SDV IVP (08:15)
[2024-04-28] MEDS: phytonadione (ADULT) 10 mg/mL Ampule 1 mL PO (08:15)
[2024-04-28] MEDS: octreotide 500 MCG in sodium chloride 0.9% (100 ml) 100 ML 10.1 MCG IV (08:17)
[2024-04-28] MEDS: cefepime 2,000 MG in sodium chloride 0.9% (plus) 50 ML 100 MG IV (08:17)
--- NOTE | 2024-04-28 08:17 | P.PN_ITS ---
Subjective 2 Subjective: no new c/o Medications: Reviewed: Yes Vitals/I&O/Wt Last Vital Signs Temp 98.5 F 04/28/24 06:42 Pulse 63 04/28/24 06:42 Resp 22 H 04/28/24 06:42 BP 124/53 04/28/24 06:42 Pulse Ox 100 04/28/24 06:42 O2 Del Method BiPAP 04/27/24 06:45 O2 Flow Rate 15 04/27/24 04:00 FiO2 30 04/27/24 11:35 04/27/24 04/28/24 04/28/24 22:59 06:59 14:59 Intake Total 549.375 / 3959.272 2025.470 / 2619.845 Output Total 350 / 2243 Balance 549.375 / -493.625 870.470 / 376.845 Weight last 48 hrs Weight 129 kg Weight 129 kg Weight 130.5 kg Physical Exam 2 Narrative: on BIPAP No distress HEENT S1S2 RRR per report Lungs clear per report No edema Urinary Catheter Management: Durán: Cath Placed During This Visit: yes Reason for Continuing Indwelling Catheter: Accurate Measurement of Urinary Output in Critically Ill Patients Urinary Catheter Date of Insertion: 04/27/24 Urinary Catheter Time of Insertion: 06:40 Data 04/28/24 09:45 04/28/24 04:03 Micro: Microbiology 04/27/24 06:54 Urine Culture - Preliminary Urine,Clean Catch 04/28/24 00:10 Occult Blood (FIT) - Final Stool Routine Collection 04/27/24 13:10 Blood Culture - Preliminary Blood SPECIMEN COLLECTED 04/27/24 10:17 Blood Culture - Preliminary Blood SPECIMEN COLLECTED A&P Assessment and plan (1) KJ (acute kidney injury): 1. Acute on chronic kidney disease: Now presented with severe hyperkalemia, emergent hemodialysis yesterday , . HD again today Also has volume overload, will do ultrafiltration as tolerated. 2. Severe hyperkalemia: Placed on low K diet and will discharge patient on Lokelma due to recurrent hyperkalemia 3. History of liver cirrhosis, portal hypertension and requiring frequent paracentesis 4. Metabolic acidosis: HD as above 5. Hyponatremia: Sodium 129--> 131 , monitor after HD Patient evaluated using audiovisual cart. time spent 40 min Attestations 2 Medical Necessity Statement*: per medicine Coding Level of Care Code Acute Code for Chg Fwd Diagnoses KJ (acute kidney injury) N17.9
--- NOTE | 2024-04-28 09:43 | PM.TDS ---
Transfer Summary Providers Date of Admission: 04/27/24 07:00 Date of Discharge/Transfer: 04/28/24 Attending Provider at Admission: Ozzy Go MD Attending Provider at Transfer: Daniel Barrera MD Transfering Provider (if different): Daniel Barrera Primary Care Provider: THEODORE Dailey Transfer Plans: Anticipated date of transfer: 04/28/24. Receiving Facility: [facility]. Receiving Provider: Dr. Cole Diagnoses at Discharge Discharge Diagnosis (1) KJ (acute kidney injury): Status: Acute Reason for Visit Reason for Visit RESP. DISTRESS Hospital Course Hospital Course Patient is a 63-year-old white male with history of Vivas with cirrhosis, recent diagnosis of hepatocellular carcinoma, diabetes, esophageal varices, TAVR, diastolic heart failure, with history of paracentesis every week who presented with significant dyspnea, respiratory failure requiring BiPAP, found to be in a wide-complex tachycardia that degenerated into V-fib requiring defibrillation 3 times, initiation of amiodarone secondary to marked hyperkalemia with a presenting to potassium of 9.3. In the emergency department he got appropriate treatment including calcium, beta agonist, insulin and glucose, placement of a central line, placement of a temporary dialysis catheter, consultation of nephrology, and emergent dialysis. With this potassium decreased to 6.3 following dialysis. He required norepinephrine during his dialysis secondary to decreased blood pressures. He was given cefepime, albumin on admission secondary to inability to rule out SBP or potentially even hepatorenal syndrome with creatinine of 1.8. Overnight, he developed some black and tarry stools, and repeat hemoglobin had decreased to 6.5 from admission of 8.4 despite taking off fluid with dialysis. This was consistent with an upper GI bleed, most likely cause esophageal varices as he is known to have these. He was on Protonix IV since admission. Octreotide was added. Patient required increased amounts of norepinephrine up to 14 during the night and weaning during the day to 10 at time I was calling to transfer the patient. I discussed with the patient the need for transfer secondary to nobody here available to perform esophageal banding which is likely cause of bleeding. He was ordered transfusion which she is receiving at this time. If he continues to stabilize and wean down on norepinephrine repeat hemoglobin in between units will be performed to make sure over transfusion does not occur as this could cause further esophageal variceal bleeding. As of this dictation, he had not had a repeat bowel movement in 3 hours so it is hopeful significant bleeding has stopped. He is amenable to the risks and benefits of transfer. No paracentesis has been performed yet secondary to patient's instability, but will likely need done during the patient's hospital stay. He was completing protocol for amiodarone at time of transfer. This could likely be stopped considering etiology of arrhythmia is hyperkalemia. Echocardiogram was done demonstrating preserved ejection fraction, mild LVH, 3/4 diastolic dysfunction, elevated filling pressures, bioprosthetic valve aortic position well-seated, mild TR and . [facility] graciously accepted him in transfer for GI services, possible/likely need for banding of esophageal varices. In time of transfer he received 2 units of packed red blood cells since his hemoglobin of 6.5. Physical Exam Narrative: General Exam no distress, vital signs stable currently on 10 of norepinephrine with a mean arterial pressure over 65. Alert and oriented. Neck supple Cardiovascular regular rate and rhythm Lungs clear Abdomen with ascites. Positive bowel sounds Extremities 1+ edema bilaterally Urinary Catheter Management: Durán: Cath Placed During This Visit: yes Reason for Continuing Indwelling Catheter: Accurate Measurement of Urinary Output in Critically Ill Patients Urinary Catheter Date of Insertion: 04/27/24 Urinary Catheter Time of Insertion: 06:40 TS Data Studies Completed and Pending Pending at discharge Category Date Time Status Blood Culture Stat Lab 04/27/24 13:10 Results PRBC [Leukocyte Reduced RBC] Routine Lab 04/28/24 04:38 Results Type and Screen Routine Lab 04/28/24 04:38 Results Urine Culture Stat Lab 04/27/24 06:54 Results Completed Studies During Hospitalization Category Date Time Status CXRP [XR chest 1V portable [id number]] Stat Exams 04/27/24 06:33 Completed XR chest 1V portable [id number] Stat Exams 04/27/24 03:50 Completed XR pelvis 1-2V* [id number] Stat Exams 04/27/24 06:34 Completed CV. echo complete* [id number] Routine Ultrasound 04/27/24 08:04 Completed Laboratory Last Values WBC 7.73 10^3/uL (3.29-11.43) 04/28/24 04:03 RBC 2.27 10^6/uL (3.85-5.65) L 04/28/24 04:03 Hgb 6.50 g/dL (11.27-16.99) L* 04/28/24 04:03 Hct 21.6 % (37-53) L 04/28/24 04:03 MCV 95.2 fl (82-101) 04/28/24 04:03 MCH 28.6 pg (27-33) 04/28/24 04:03 MCHC 30.1 g/dL (30-55) 04/28/24 04:03 RDW 16.1 % (12.1-15.1) H 04/28/24 04:03 Plt Count 81 10^3/cmm (157-399) L D 04/28/24 04:03 MPV 11.3 fL (7.4-10.4) H 04/28/24 04:03 Neut % (Auto) 76.7 % 04/28/24 04:03 Lymph % (Auto) 5.3 % 04/28/24 04:03 Jess[place] % (Auto) 13.5 % 04/28/24 04:03 Eos % (Auto) 3.9 % 04/28/24 04:03 Baso % (Auto) 0.1 % 04/28/24 04:03 Neut # (Auto) 5.93 10^3/uL (1.8-7.7) 04/28/24 04:03 Lymph # (Auto) 0.4 10^3/uL (0.8-4.8) L 04/28/24 04:03 [place] # (Auto) 1.0 10^3/uL (0.2-0.9) H 04/28/24 04:03 Eos # (Auto) 0.3 10^3/uL (0.0-0.8) 04/28/24 04:03 Baso # (Auto) 0.0 10^3/uL (0.0-0.1) 04/28/24 04:03 Nucleated RBC % (auto) 0 % 04/28/24 04:03 Nucleated RBCs # 0.0 /100WBC 04/28/24 04:03 PT 18.00 SECONDS (12.1-14.9) H 04/28/24 04:03 INR 1.43 (0.8-1.2) H 04/28/24 04:03 Specimen Type Arterial 04/27/24 05:12 Sample Site Brachial, right 04/27/24 05:12 ABG pH 7.21 (7.35-7.45) L 04/27/24 05:12 ABG pCO2 32.2 mmHg (35-45) L 04/27/24 05:12 ABG pO2 331.0 mmHg (80.0-100.0) H 04/27/24 05:12 ABG PO2/FiO2 Ratio 331 04/27/24 05:12 ABG HCO3 12.9 mmol/L (22-26) L 04/27/24 05:12 ABG O2 Saturation > 99.1 04/27/24 05:12 ABG Base Excess -13.8 mmol/L (-2.0-2.0) L 04/27/24 05:12 Sly Test N/a 04/27/24 05:12 A-a O2 Gradient 43.6 mmHg (5-10) H 04/27/24 05:12 Hematocrit 25.8 % (42-52) L 04/27/24 05:12 Hgb O2 Saturation 98.9 % (95-100) 04/27/24 05:12 Carboxyhemoglobin 1.3 %THgb (0.4-20.1) 04/27/24 05:12 Methemoglobin 0.4 % (0.4-1.5) 04/27/24 05:12 Total Hemoglobin 8.4 g/dL (14-18) L 04/27/24 05:12 Sodium 127.0 mmol/L (131-143) L 04/27/24 05:12 Potassium 8.0 mmol/L (3.5-5.0) H 04/27/24 05:12 Glucose 311.0 mg/dL (70-115) H 04/27/24 05:12 Ionized Calcium 1.5 mmol/L (1.1-1.4) H 04/27/24 05:12 O2 Delivery Device Bipap 04/27/24 05:12 FiO2 100.0 % 04/27/24 05:12 Education Professor ID [email or web address] 04/27/24 05:12 Sodium 131 mmol/L (136-145) L 04/28/24 04:03 Potassium 5.5 mmol/L (3.5-5.1) H 04/28/24 04:03 Chloride 99 mmol/L (98-107) 04/28/24 04:03 Carbon Dioxide 22 mmol/L (22-29) 04/28/24 04:03 Anion Gap 15.5 (5-19) 04/28/24 04:03 BUN 42 mg/dL (8-23) H 04/28/24 04:03 Creatinine 1.9 mg/dL (0.7-1.2) H 04/28/24 04:03 GFR Calculation 36.1 mL/min (90-130) L 04/28/24 04:03 Glucose 105 mg/dL (65-115) 04/28/24 04:03 POC Glucose 125 mg/dL (70-110) H 04/28/24 07:45 Calculated Osmolality 283 mOsm/kg (285-295) L 04/28/24 04:03 Calcium 8.0 mg/dL (8.5-10.5) L 04/28/24 04:03 Magnesium 2.1 mg/dL (1.7-2.3) 04/28/24 04:03 Total Bilirubin 1.0 mg/dL (0.15-1.2) 04/28/24 04:03 AST 65 U/L (0-40) H 04/28/24 04:03 ALT 31 U/L (0-41) 04/28/24 04:03 Alkaline Phosphatase 128 U/L (40-130) 04/28/24 04:03 Ammonia 72 umol/L (16-60) H 04/27/24 05:20 Troponin T Baseline 135 ng/L (0-15) H* 04/27/24 04:09 Troponin T 120 Minute 365.9 ng/L (0-15) H 04/27/24 08:23 Delta Troponin T 230.9 ABS# (0-10) H* 04/27/24 08:23 Troponin T Hi Sens 6Hr 458.7 ng/L (0-15) H 04/27/24 10:17 Troponin T Hi Sens 6Hr Delta 323.7 ng/L (0-12) H* 04/27/24 10:17 Total Protein 5.4 g/dL (6.6-8.7) L 04/28/24 04:03 Albumin 3.3 g/dL (3.5-5.2) L 04/28/24 04:03 Globulin 2.1 g/dL (1.3-4.6) 04/28/24 04:03 TSH 6.61 uIU/mL (0.27-4.20) H 04/27/24 08:23 Random Cortisol 23.91 ug/dL (2.47-19.5) H 04/27/24 08:23 Urine Color Dark yellow (Yellow) A 04/27/24 06:54 Urine Appearance Clear (CLEAR) 04/27/24 06:54 Urine pH 5.5 (5-7) 04/27/24 06:54 Ur Specific [place] 1.020 (1.005-1.030) 04/27/24 06:54 Urine Protein 2+ (Negative) A 04/27/24 06:54 Urine Glucose (UA) 1+ (Normal) H 04/27/24 06:54 Urine Ketones Negative (Negative) 04/27/24 06:54 Urine Blood 2+ (Negative) A 04/27/24 06:54 Urine Nitrate Negative (Negative) 04/27/24 06:54 Urine Bilirubin Negative (Negative) 04/27/24 06:54 Urine Urobilinogen 0.2 mg/dL (Negative) 04/27/24 06:54 Ur Leukocyte Esterase Negative (Negative) 04/27/24 06:54 Urine RBC 51-100 /hpf (0-2) H 04/27/24 06:54 Urine WBC 6-10 /hpf (0-5) 04/27/24 06:54 Ur Squamous Epith Cells 0-5 /hpf (0-5) 04/27/24 06:54 Amorphous Sediment Not Reportable 04/27/24 06:54 Urine Bacteria Trace /hpf (NONE) 04/27/24 06:54 Hyaline Casts 25.63 /lpf 04/27/24 06:54 Coarse Granular Casts 0-4 /lpf H 04/27/24 06:54 Serum Ketones Negative (Negative) 04/27/24 08:23 Coronavirus (PCR) Negative (Negative) 04/27/24 07:08 Hep Bs Antigen Non-reactive (Nonreactive) 04/27/24 05:20 Hep Bs Antibody < 3.5 (11.5-1000) L 04/27/24 05:20 Influenza A (PCR) Negative (Negative) 04/27/24 07:08 Influenza Type B (PCR) Negative (Negative) 04/27/24 07:08 RSV (PCR) Negative (Negative) 04/27/24 07:08 Blood Type O Positive 04/28/24 04:38 Rho(D) Type Rh positive 04/28/24 04:38 Antibody Screen Negative 04/28/24 04:38 Crossmatch See Detail 04/28/24 04:38 Radiology Impressions Chest X-Ray 04/27/24 06:33 IMPRESSION: 1. Cardiomegaly with mild vascular congestion suspected. 2. Small right pleural effusion. Pelvis X-Ray 04/27/24 06:34 IMPRESSION: 1. Left femoral catheter. Recent Clincial Data Last Vital Signs Temp 98.5 F 04/28/24 06:42 Pulse 62 04/28/24 07:42 Resp 17 04/28/24 07:42 BP 116/70 04/28/24 07:42 Pulse Ox 98 04/28/24 07:42 O2 Del Method BiPAP 04/27/24 06:45 O2 Flow Rate 15 04/27/24 04:00 FiO2 30 04/27/24 11:35 Vital Signs Temp Pulse Resp BP Pulse Ox 04/28/24 07:42 62 17 116/70 98 04/28/24 06:42 98.5 F 63 22 H 124/53 100 04/28/24 06:27 98.4 F 65 20 H 113/51 100 04/28/24 06:17 98.5 F 66 22 H 109/46 100 04/28/24 06:10 64 20 H 103/55 100 04/28/24 06:10 98.5 F 64 21 H 113/46 100 04/28/24 06:05 67 18 103/55 100 04/28/24 06:00 68 15 103/55 100 04/28/24 05:55 70 25 H 126/65 100 04/28/24 05:50 84 10 L 126/65 94 04/28/24 05:45 73 22 H 126/65 100 04/28/24 05:40 72 17 100/56 100 04/28/24 05:35 77 19 H 100/56 100 04/28/24 05:30 80 22 H 100/56 100 04/28/24 05:25 65 23 H 120/61 100 04/28/24 05:20 66 21 H 120/61 99 04/28/24 05:15 61 20 H 131/57 100 04/28/24 05:10 66 23 H 131/57 100 04/28/24 05:05 65 23 H 131/57 99 04/28/24 05:00 65 21 H 131/57 98 04/28/24 04:55 65 22 H 130/65 98 04/28/24 04:50 64 22 H 130/65 100 04/28/24 04:45 63 21 H 130/65 100 04/28/24 04:40 65 25 H 116/47 100 04/28/24 04:35 66 20 H 116/47 100 04/28/24 04:30 98.8 F 65 22 H 116/47 100 04/28/24 04:25 65 22 H 86/52 100 04/28/24 04:20 68 29 H 86/52 100 04/28/24 04:15 66 24 H 86/52 100 04/28/24 04:10 65 20 H 108/53 100 04/28/24 04:05 66 20 H 108/53 100 04/28/24 04:00 66 24 H 108/53 100 04/28/24 03:55 65 22 H 110/49 99 04/28/24 03:50 67 18 110/49 100 04/28/24 03:45 67 21 H 110/49 99 04/28/24 03:40 68 21 H 111/63 98 04/28/24 03:35 67 23 H 111/63 100 04/28/24 03:30 67 23 H 111/63 100 04/28/24 03:25 66 18 112/59 100 04/28/24 03:20 66 22 H 112/59 100 04/28/24 03:15 67 20 H 112/59 100 04/28/24 03:10 69 26 H 108/62 99 04/28/24 03:05 68 19 H 108/62 100 04/28/24 03:00 91 18 108/62 100 04/28/24 02:55 80 25 H 107/58 100 04/28/24 02:50 74 13 107/58 100 04/28/24 02:45 75 22 H 107/58 100 04/28/24 02:40 67 20 H 102/41 99 04/28/24 02:35 66 20 H 102/41 99 04/28/24 02:30 66 19 H 102/41 100 04/28/24 02:25 67 25 H 117/49 99 04/28/24 02:20 98.4 F 69 24 H 117/49 99 04/28/24 02:15 68 22 H 117/49 99 04/28/24 02:10 68 22 H 119/49 98 04/28/24 02:05 67 18 119/49 98 04/28/24 02:00 68 19 H 119/49 98 04/28/24 01:55 66 19 H 94/56 98 04/28/24 01:50 67 24 H 94/56 99 04/28/24 01:45 67 21 H 94/56 98 04/28/24 01:40 67 20 H 131/52 99 04/28/24 01:35 69 24 H 131/52 99 04/28/24 01:30 68 23 H 131/52 98 04/28/24 01:25 68 21 H 113/54 98 04/28/24 01:20 66 19 H 113/54 100 04/28/24 01:15 67 22 H 106/58 98 04/28/24 01:10 68 20 H 106/58 100 04/28/24 01:05 70 19 H 106/58 99 04/28/24 01:00 72 22 H 106/58 99 04/28/24 00:55 81 23 H 98/55 99 04/28/24 00:50 87 21 H 98/55 99 04/28/24 00:45 87 19 H 98/55 99 04/28/24 00:40 87 17 107/58 99 04/28/24 00:35 88 20 H 107/58 99 04/28/24 00:30 87 17 107/58 98 04/28/24 00:25 87 21 H 106/45 98 04/28/24 00:20 79 20 H 106/45 99 04/28/24 00:15 66 22 H 106/45 97 04/28/24 00:10 67 23 H 95/46 97 04/28/24 00:05 66 21 H 95/46 97 04/28/24 00:00 67 22 H 95/46 99 04/27/24 23:55 66 24 H 99 04/27/24 23:50 72 25 H 04/27/24 23:45 71 19 H 04/27/24 23:41 73 26 H 04/27/24 23:35 76 29 H 04/27/24 23:30 87 26 H 98 04/27/24 23:25 85 22 H 98 04/27/24 23:20 87 22 H 99 04/27/24 23:15 86 16 100 04/27/24 23:10 87 19 H 99 04/27/24 23:05 84 19 H 98 04/27/24 23:00 77 22 H 115/60 98 04/27/24 22:55 73 25 H 115/60 98 04/27/24 22:50 67 26 H 115/60 98 04/27/24 22:45 66 23 H 115/60 99 04/27/24 22:40 67 24 H 138/70 97 04/27/24 22:35 66 22 H 138/70 97 04/27/24 22:30 66 23 H 138/70 98 04/27/24 22:25 66 23 H 124/55 98 04/27/24 22:20 66 23 H 124/55 97 04/27/24 22:15 66 23 H 124/55 98 04/27/24 22:10 69 20 H 96/47 99 04/27/24 22:00 87 Intake & Output/Weight 04/26/24 04/27/24 04/28/24 04/29/24 06:59 06:59 06:59 06:59 Intake Total 250 / 250 2619.845 / 2619.845 250 / 250 Output Total 2243 / 2243 Balance 250 / 250 376.845 / 376.845 250 / 250 Weight 129 kg Vitals Last Vital Signs Temp 98.5 F 04/28/24 06:42 Pulse 62 04/28/24 07:42 Resp 17 04/28/24 07:42 BP 116/70 04/28/24 07:42 Pulse Ox 98 04/28/24 07:42 O2 Del Method BiPAP 04/27/24 06:45 O2 Flow Rate 15 04/27/24 04:00 FiO2 30 04/27/24 11:35 TS Medications Medications Glucagon (Glucagon 1 Mg/Ml Kit 1 Ml) 1 mg IM ONCE PRN; Protocol PRN Reason: Adult Acute Hypoglycemia Nursing Prot. Amiodarone HCl/Dextrose (Nexterone) 360 mg in 200 mls @ 0 mls/hr IV .Q0M [facility]; Protocol Last Admin: 04/28/24 01:33 Dose: 0.5 mg/min, 16.67 mls/hr Sodium Chloride (Sodium Chloride 0.9%) 1,000 mls @ 0 mls/hr IV .Q0M PRN PRN Reason: hypotension or symptomatic Albumin Human (Albumin) 12.5 gm in 50 mls @ 60 mls/hr IV PRN PRN PRN Reason: Hypotension and/or symptomatic Dextrose (D10w) 250 mls @ 1,000 mls/hr IV PRN PRN PRN Reason: HYPOGLYCEMIA Last Infusion: 04/27/24 05:15 Dose: Infused Cefepime HCl 2,000 mg/ Sodium (Chloride) 50 mls @ 100 mls/hr IV Q12H MARY; Protocol Last Admin: 04/28/24 08:17 Dose: 100 mls/hr Albumin Human (Albumin) 25 g in 100 mls @ 60 mls/hr IV Q8H MARY Last Admin: 04/28/24 08:18 Dose: 60 mls/hr Dextrose (D5w) 500 mls @ 0 mls/hr IV ONCE PRN; Protocol PRN Reason: Adult Acute Hypoglycemia Prot Dextrose (D10w) 125 mls @ 750 mls/hr IV PRN PRN; Protocol PRN Reason: Adult Acute Hypoglycemia Nursing Protocol Dextrose (D10w) 250 mls @ 1,000 mls/hr IV PRN PRN; Protocol PRN Reason: Adult Acute Hypoglycemia Nursing Protocol Norepinephrine Bitartrate (Levophed) 4 mg in 250 mls @ 0 mls/hr IV .Q0M MARY; Protocol Last Admin: 04/28/24 06:44 Dose: 12 mcg/min, 45 mls/hr Octreotide Acetate 500 mcg/ (Sodium Chloride) 101 mls @ 10.1 mls/hr IV .Q10H MARY Last Admin: 04/28/24 08:17 Dose: 50 mcg/hr, 10.1 mls/hr Sodium Chloride (Sodium Chloride 0.9%) 1,000 mls @ 0 mls/hr IV .Q0M PRN PRN Reason: hypotension or symptomatic Albumin Human (Albumin) 12.5 gm in 50 mls @ 60 mls/hr IV PRN PRN PRN Reason: Hypotension and/or symptomatic Insulin Human Lispro (Insulin Lispro 100 Unit/1 Ml) 0 unit SUBCUT WM&BEDTIME MARY; Protocol Last Admin: 04/28/24 08:17 Dose: Not Given Ondansetron HCl (Ondansetron 2 Mg/Ml Sdv 2 Ml) 4 mg IVP Q6H PRN PRN Reason: NAUSEA AND VOMITING Pantoprazole Sodium (Pantoprazole 40 Mg Sdv) 40 mg IVP Q12H [facility] Last Admin: 04/28/24 08:15 Dose: 40 mg Sodium Chloride (Sodium Chloride 0.9% 100 Ml Bag) 50 ml IV PRN PRN PRN Reason: Blood transfusion prime and flush Stop: 04/29/24 04:46 Discontinued Medications Albuterol Sulfate (Albuterol 2.5 Mg/3 Ml Neb) 7.5 mg INHALATION ONCE ONE Stop: 04/27/24 05:32 Last Admin: 04/27/24 05:34 Dose: 7.5 mg Heparin Sodium (Porcine) (Heparin, Porcine 1,000 Unit/Ml Inj 10 Ml) 10,000 unit INTRACATH ONCE ONE Stop: 04/27/24 05:59 Last Admin: 04/27/24 15:10 Dose: Not Given Heparin Sodium (Porcine) (Heparin, Porcine 1,000 Unit/Ml Inj 10 Ml) 1,000 unit IV ONCE ONE Stop: 04/27/24 05:59 Last Admin: 04/27/24 08:00 Dose: 1,000 unit Heparin Sodium (Porcine) (Heparin, Porcine 1,000 Unit/Ml Inj 10 Ml) 10,000 unit INTRACATH ONCE ONE Stop: 04/27/24 08:46 Last Admin: 04/27/24 09:32 Dose: Not Given Heparin Sodium (Porcine) (Heparin, Porcine 1,000 Unit/Ml Inj 10 Ml) 1,000 unit IV ONCE ONE Stop: 04/27/24 08:46 Last Admin: 04/27/24 09:33 Dose: Not Given Heparin Sodium (Porcine) (Heparin, Porcine 1,000 Unit/Ml Inj 10 Ml) 10,000 unit INTRACATH ONCE ONE Stop: 04/28/24 08:20 Heparin Sodium (Porcine) (Heparin, Porcine 1,000 Unit/Ml Inj 10 Ml) 1,000 unit IV ONCE ONE Stop: 04/28/24 08:20 Dextrose (D10w) Confirm Administered Dose 250 mls @ as directed .ROUTE .STK-MED ONE Stop: 04/27/24 05:01 Dextrose (D5w) Confirm Administered Dose 1,000 mls @ as directed .ROUTE .STK-MED ONE Stop: 04/27/24 05:27 Last Admin: 04/27/24 06:40 Dose: Not Given Amiodarone HCl/Dextrose (Nexterone) Confirm Administered Dose 360 mg in 200 mls @ as directed .ROUTE .STK-MED ONE Stop: 04/27/24 05:30 Insulin Human Regular (Insulin Regular-Human 100 Units/1 Ml) Confirm Administered Dose 10 unit .ROUTE .STK-MED ONE Stop: 04/27/24 05:02 Insulin Human Regular (Insulin Regular-Human 100 Units/1 Ml) 5 unit IVP ONCE ONE Stop: 04/27/24 05:57 Last Admin: 04/27/24 06:56 Dose: 5 unit Insulin Human Regular (Insulin Regular-Human 100 Units/1 Ml) 5 unit IVP ONCE ONE Stop: 04/27/24 06:19 Last Admin: 04/27/24 06:32 Dose: 5 unit Insulin Human Regular (Insulin Regular-Human 100 Units/1 Ml) 10 unit IVP ONCE ONE Stop: 04/27/24 05:09 Last Admin: 04/27/24 05:08 Dose: 10 unit Phytonadione (Phytonadione (Adult) 10 Mg/Ml Ampule 1 Ml) 10 mg PO ONCE ONE Stop: 04/28/24 07:19 Last Admin: 04/28/24 08:15 Dose: 10 mg Sodium Bicarbonate (Sodium Bicarbonate 8.4% 1 Meq/Ml 50ml Syr) Confirm Administered Dose 50 meq .ROUTE .STK-MED ONE Stop: 04/27/24 05:26 Last Admin: 04/27/24 06:40 Dose: Not Given Sodium Polystyrene Sulfonate (Sodium Polystyrene Sulfonate 15 Gm/60 Ml Btl) 30 gm PO ONCE ONE Stop: 04/27/24 14:00 Last Admin: 04/27/24 15:09 Dose: 30 gm Sodium Polystyrene Sulfonate (Sodium Polystyrene Sulfonate 15 Gm/60 Ml Btl) 15 gm PO ONCE ONE Stop: 04/27/24 21:14 Last Admin: 04/27/24 21:37 Dose: 15 gm Allergies No Known Allergies Allergy (Verified 04/14/24 11:56) Home Medications cholecalciferol (vitamin D3) 50 mcg (2,000 unit) capsule 50 mcg PO DAILY 11/13/21 [History Confirmed 04/27/24] ferrous sulfate 325 mg (65 mg iron) tablet 325 mg PO DAILY 11/27/21 [History Confirmed 04/27/24] melatonin 5 mg capsule 10 mg PO BEDTIME PRN Sleep 11/27/21 [History Confirmed 04/27/24] mecobalamin (vitamin B12) 1,000 mcg chewable tablet (B12 Active) 1,000 mcg PO DAILY 11/05/22 [History Confirmed 04/27/24] cholestyramine-aspartame 4 gram oral powder for susp in a packet 1 ea PO DAILY 02/05/24 [History Confirmed 04/27/24] ascorbic acid (vitamin C) 500 mg capsule 500 mg PO DAILY 02/16/24 [History Confirmed 04/27/24] aspirin 81 mg tablet,delayed release (Adult Aspirin Regimen) 81 mg PO DAILY #90 tabs 02/16/24 [Rx Confirmed 04/27/24] pyridoxine (vitamin B6) 50 mg tablet (Vitamin B-6) 50 mg PO BID 02/16/24 [History Confirmed 04/27/24] insulin degludec 200 unit/mL (3 mL) subcutaneous pen (Tresiba FlexTouch U-200 insulin) 40 unit SUBCUT .QAM 02/17/24 [History Confirmed 04/27/24] cyanocobalamin (vitamin B-12) 500 mcg tablet 500 mcg PO DAILY 02/19/24 [History Confirmed 04/27/24] magnesium 200 mg tablet 200 mg PO DAILY 02/19/24 [History Confirmed 04/27/24] pravastatin 10 mg tablet 10 mg PO DAILY 03/03/24 [History Confirmed 04/27/24] dapagliflozin propanediol 10 mg tablet (Farxiga) 10 mg PO DAILY 03/15/24 [History Confirmed 04/27/24] loratadine 10 mg tablet 10 mg PO BID #180 tabs 04/16/24 [Rx Confirmed 04/27/24] sodium bicarbonate 650 mg tablet 650 mg PO BID #180 tabs 04/16/24 [Rx Confirmed 04/27/24] dulaglutide 3 mg/0.5 mL subcutaneous pen injector ([facility]) See Rx Instructions .Route .COMPLEX #4 mL 04/23/24 [Rx Confirmed 04/27/24] furosemide 40 mg tablet 40 mg PO DAILY 04/27/24 [History Confirmed 04/27/24] metformin 1,000 mg tablet See Rx Instructions .Route .COMPLEX 04/27/24 [History Confirmed 04/27/24] multivitamin 1 tab PO QAM 04/27/24 [History Confirmed 04/27/24] trazodone 50 mg tablet 50 mg PO BEDTIME 04/27/24 [History Confirmed 04/27/24] Discharge Plan Discharge Patient Disposition: Xfer Short-Term Hosp Condition: Stable Prescriptions: No Action ferrous sulfate 325 mg (65 mg iron) tablet 325 mg PO DAILY melatonin 5 mg capsule 10 mg PO BEDTIME PRN (Reason: Sleep) Patient Comments: 2 tabs at hs prn cholecalciferol (vitamin D3) 50 mcg (2,000 unit) capsule 50 mcg PO DAILY ascorbic acid (vitamin C) 500 mg capsule 500 mg PO DAILY pyridoxine (vitamin B6) [Vitamin B-6] 50 mg tablet 50 mg PO BID aspirin [Adult Aspirin Regimen] 81 mg tablet,delayed release (DR/EC) 81 mg PO DAILY Qty: 90 3RF dapagliflozin propanediol [Farxiga] 10 mg tablet 10 mg PO DAILY sodium bicarbonate 650 mg tablet 650 mg PO BID Qty: 180 0RF loratadine 10 mg tablet 10 mg PO BID Qty: 180 0RF Trulicity 3 mg/0.5 mL pen injector See Rx Instructions .ROUTE .COMPLEX Qty: 4 0RF Dose Instruction: INJECT 3MG SUBCUTANEOUSLY ONCE EVERY 7 DAYS Rx Instructions: INJECT 3MG SUBCUTANEOUSLY ONCE EVERY 7 DAYS mecobalamin (vitamin B12) [B12 Active] 1,000 mcg Tablet,Chewable 1,000 mcg PO DAILY cholestyramine-aspartame 4 gram powder in packet 1 ea PO DAILY insulin degludec [Tresiba FlexTouch U-200] 200 unit/mL (3 mL) insulin pen 40 unit SUBCUT .QAM cyanocobalamin (vitamin B-12) 500 mcg Tablet 500 mcg PO DAILY magnesium 200 mg Tablet 200 mg PO DAILY pravastatin 10 mg tablet 10 mg PO DAILY furosemide 40 mg Tablet 40 mg PO DAILY trazodone 50 mg tablet 50 mg PO BEDTIME metformin 1,000 mg tablet See Rx Instructions .ROUTE .COMPLEX Rx Instructions: Take 1000 mg in the morning and 500mg in the evening. multivitamin Tablet 1 tab PO QAM Referrals: Colette Henry FNP [Primary Care Provider] - Patient Instructions: Opioid Safety Transfer Attestations Time Spent in Transfer Care: greater than 30 min Quality Metrics Clinical Quality Measures [ No reported AMI, CVA or VTE this stay] Coding Level of Care Code 36527 Total time (in minutes) for Discharge: 43 Diagnoses KJ (acute kidney injury) N17.9
[2024-04-28 10:01] LABS: Hematocrit 22.6 % (37-53)
[2024-04-28 12:36] LABS: Glucose Point of Care 107 mg/dL (70-110)
[2024-04-28] MEDS: norepinephrine 4 MG/250 ML BAG 37.5 MG IV (14:13)
[2024-04-28 14:22] LABS: Hematocrit 26.7 % (37-53)
== END 2024-04-28 15:10 | disposition short-term general hospital (02) | DRG 640 ==
LOC: ER 06:42 → ICU 07:01
PROVIDERS: Emergency Medicine; Hospitalist; Admitting Provider Internal Medicine; Emergency Provider Family Medicine; PCP Nurse Practitioner Family; Visit Provider Internal Medicine
DX: E87.5 Hyperkalemia (principal); G93.41 Metabolic encephalopathy; I49.01 Ventricular fibrillation; J96.01 Acute respiratory failure with hypoxia; I85.11 Secondary esophageal varices with bleeding; K65.2 Spontaneous bacterial peritonitis; K76.7 Hepatorenal syndrome; N17.9 Acute kidney failure, unspecified; R18.8 Other ascites; C22.7 Other specified carcinomas of liver; K76.6 Portal hypertension; E87.20 Acidosis, unspecified; E87.1 Hypo-osmolality and hyponatremia; K74.69 Other cirrhosis of liver; R00.1 Bradycardia, unspecified; K75.81 Nonalcoholic steatohepatitis (NASH); Z79.82 Long term (current) use of aspirin; Z79.4 Long term (current) use of insulin; E11.22 Type 2 diabetes mellitus with diabetic chronic kidney disease; I12.9 Hypertensive chronic kidney disease with stage 1 through stage 4 chronic kidney disease, or unspecified chronic kidney disease; Z87.891 Personal history of nicotine dependence; N18.9 Chronic kidney disease, unspecified; Z79.85 Long-term (current) use of injectable non-insulin antidiabetic drugs; E78.5 Hyperlipidemia, unspecified; E78.1 Pure hyperglyceridemia; Z95.3 Presence of xenogenic heart valve; Z91.141 Patient's other noncompliance with medication regimen due to financial hardship; E87.79 Other fluid overload; D69.59 Other secondary thrombocytopenia; D63.8 Anemia in other chronic diseases classified elsewhere
CPT/HCPCS: 0241U; 36415; 36416; 36430; 36592; 36600; 51702; 71045; 72170; 80048; 80051; 80053; 81001; 82009; 82140; 82274; 82330; 82533; 82805; 82962; 83735; 84132; 84443; 84484; 85014; 85018; 85025; 85610; 86706; 86850; 86900; 86920; 87040; 87086; 87340; 90935; 93005; 93306; 94640; 94660; 96365; 96366; 96372; 96375; 99291; 99292; A4222; C1751; J0283; J0692; J1644; J1815; J2354; J2470; J3430; J7613; J7799; P9016; P9040; P9046

== ENCOUNTER 2024-05-06 10:55 | Day surgery (SDC) | payer BC, SELFPAY ==
--- NOTE | 2024-05-06 11:34 | US_ITS ---
WS: [id number] ULTRASOUND-GUIDED PARACENTESIS CLINICAL INFORMATION: cirrhosis of liver with ascites COMPARISON: None. Procedure Informed consent: The risks, benefits, and alternatives of the procedure were discussed with the caterina ent. Verbal and written consent was obtained. Timeout: A timeout was performed to confirm the correct patient, procedure, and site. Preparation: A suitable skin site was identified. The patient was prepped and draped in usual sterile fashion. Lidocaine 1% was used for local anesthesia. Catheter: 4 Kisw[place]ili One-step Yueh catheter. Side: LEFT lower quadrant. Fluid Volume: [id number] ml Color: Clear yellow DISPOSITION: Discarded safely. Complications: None. Patient disposition: Discharged from the department in stable condition. US/US paracentesis abd w [id number] IMPRESSION: Uncomplicated ultrasound-guided paracentesis. Removal of 15,000cc
[2024-05-06 11:41] VITALS: BP 112/66; PULSE 80; RESP 16; TEMP 36.3; O2SAT 99
[2024-05-06] MEDS: albumin 75 G/300 ML BAG 180 G IV (12:45)
== END 2024-05-06 13:30 | disposition home or self-care (01) ==
LOC: GILAB 10:56
PROVIDERS: Radiology Neuroradiology; Family Provider Internal Medicine Gastroenterology; PCP Nurse Practitioner Family; Visit Provider Internal Medicine
PROC: (CPT 49082; principal; 2024-05-06 12:00)
DX: K74.60 Unspecified cirrhosis of liver (principal); R18.8 Other ascites
CPT/HCPCS: 49083; P9046

== ENCOUNTER 2024-05-13 11:04 | Day surgery (SDC) | payer BC, SELFPAY ==
[2024-05-13 11:13] VITALS: BP 129/67; PULSE 93; RESP 20; TEMP 36.4; O2SAT 99
--- NOTE | 2024-05-13 12:06 | US_ITS ---
WS: [id number] ULTRASOUND-GUIDED THERAPEUTIC AND DIAGNOSTIC PARACENTESIS Procedure, risks, and complications have been explained to the patient. Consent is obtained. Utilizing aseptic technique and 1% buffered lidocaine, a small dermatome was made through which a 5 F rench Yueh catheter was inserted. Approximately 9500 ml of clear peritoneal fluid was obtained witho ut difficulty. No complications encountered. Fluid specimen collected for analysis. US/US paracentesis abd w [id number] IMPRESSION: Uncomplicated paracentesis yielding 9500 ml of peritoneal fluid.
[2024-05-13 12:58] LABS: Appearance, Peritoneal Fluid Cloudy (Clear); Color, Peritoneal Fluid Pale Yellow (Pale Yellow); Cyto Order Verification No Order
[2024-05-13 13:01] LABS: Mononuclear #, Pertinoneal Fl 0.146 10^3/uL; Polynuclear # Cells, Perit 0.022 10^3/uL; RBC Pertioneal Fluid 6 10^3/uL; WBC Peritoneal Fluid 168 /uL
[2024-05-13] MEDS: albumin 25 G/100 ML BAG 60 G IV ×2 (13:33→14:02)
[2024-05-13 14:32] LABS: Pathology Referral Yes
== END 2024-05-13 14:17 | disposition home or self-care (01) ==
PROVIDERS: Radiology Diagnostic Radiology; Family Provider Internal Medicine Gastroenterology; PCP Nurse Practitioner Family; Visit Provider Internal Medicine
PROC: (CPT 49082; principal; 2024-05-13 12:00)
DX: K74.60 Unspecified cirrhosis of liver (principal); R18.8 Other ascites
CPT/HCPCS: 49083; 80503; 89050; 96365; P9046

== ENCOUNTER 2024-06-01 10:52 | Day surgery (SDC) | payer BC, SELFPAY ==
[2024-06-01] VITALS (8 sets, daily range): BP systolic 98–123; BP diastolic 54–83; PULSE 81–85; RESP 16–17; TEMP 36.1–36.3; O2SAT 99–100; BMI 36.9
--- NOTE | 2024-06-01 11:14 | P.HPUD_ITS ---
Surgery/Procedure H&P Update DATE OF PROCEDURE: June 01, 2024 DATE H&P PERFORMED: 05/31/24 H&P UPDATE INFORMATION: I have reviewed H&P completed within last 30 days, I have examined patient prior to procedure and No changes to prior documentation PLANNED PROCEDURE: Operation Date: 06/01/24 13:10 Proposed Procedures p Laparoscopic Peritoneal Cath Inserti/lap peritoneal drain placement [id number], R18 .8(Not Applicable) - Huey Leonard DO
[2024-06-01] MEDS: sodium chloride 0.9% 1,000 ML 30 ML IV (11:50)
[2024-06-01 11:56] LABS: Basophils % 0.5 %; Eosinophils # 0.1 10^3/uL (0.0-0.8); Eosinophils % 2.2 %; Hematocrit 26.9 % (37-53); Lymphocytes # 0.2 10^3/uL (0.8-4.8); Lymphocytes % 5.9 %; Mean Corpuscular HGB Conc 33.5 g/dL (30-55); Mean Corpuscular Volume 89.7 fl (82-101); Mean Platelet Volume 10.5 fL (7.4-10.4); Monocytes # 0.6 10^3/uL (0.2-0.9); Monocytes % 14.3 %; Neutrophils # 3.12 10^3/uL (1.8-7.7); Neutrophils % 76.6 %; Nucleated Red Blood Cells % 0 %; Platelet Count 66 10^3/cmm (157-399); White Blood Count 4.07 10^3/uL (3.29-11.43)
[2024-06-01 12:19] LABS: Anion Gap 15.1 (5-19); Blood Urea Nitrogen 58 mg/dL (8-23); Calcium 8.6 mg/dL (8.5-10.5); Carbon Dioxide 21 mmol/L (22-29); Chloride 94 mmol/L (98-107); Creatinine Clr Calc Pharmacy 38.2039; Glomerular Filtration Rate 23.1 mL/min (90-130); Glucose 64 mg/dL (65-115); Osmolality Calculated 274 mOsm/kg (285-295); Potassium 5.1 mmol/L (3.5-5.1); Sodium 125 mmol/L (136-145)
[2024-06-01] MEDS: ceFAZolin 2,000 mg SDV 2000 MG IVP (12:45)
--- NOTE | 2024-06-01 13:06 | ANES.PREANE2 ---
Pre-Anesthetic Assessment Height/Weight: Height 1.85 m Weight 127.006 kg Temp Pulse Resp BP Pulse Ox O2 Del Method 97.4 F L 83 17 123/73 99 Room Air 06/01/24 11:47 06/01/24 11:47 06/01/24 11:47 06/01/24 11:47 06/01/24 11:47 06/01/24 11:47 Operation Date: 06/01/24 13:10 Proposed Procedures p Laparoscopic Peritoneal Cath Inserti/lap peritoneal drain placement [id number], R18.8(Not Applicable) - Huey Leonard DO Familial anesthetic complications: None Was Beta Eyad taken within 24 hours: N/A Was Clonidine taken within 24 hours: N/A Last intake: Intake Last Liquid Date 05/31/24 Last Liquid Time 19:00 Last Solid Date 05/31/24 Last Solid Time 17:00 Social No alcohol and No tobacco Exam alert, oriented x 3, clear to auscultation bilaterally and regular rate & rhythm CV/HEM V fib shocks X3 with last admission Hepatic liver failure, XIE cirrhosis, hepatocellular carcinoma GI esophageal varices Metabolic Morbid Obesity Anesthetic Plan ASA status: 4 Anesthesia: General Risk of > 500 ml blood loss (7ml/kg in children): No Other Pertinent Information Patient's family presented POA stating he does not want CPR Medications/Allergies Home Medications Medication Instructions Recorded Confirmed Last Taken Type lorazepam 1 mg tablet 1 mg PO DAILY PRN Sleep 05/31/24 06/01/24 05/31/24 19:00 History Allergies Allergy/AdvReac Type Severity Reaction Status Date / Time No Known Allergies Allergy Verified 06/01/24 11:26 Current Medications Generic Name Dose Route Start Last Admin Trade Name Freq PRN Reason Stop Dose Admin Sodium Chloride 1,000 mls @ 30 mls/hr 06/01/24 11:45 06/01/24 11:50 Sodium Chloride 0.9% IV 06/02/24 11:44 30 mls/hr .Q24H MARY Administration PFSH Anesthesia Medical History Liver cancer Elevated liver enzymes Low vitamin D level Portal hypertension Chronic kidney disease Diabetes mellitus Hyperlipidemia Hypertriglyceridemia Chronic cough Surgical History S/P TAVR (transcatheter aortic valve replacement) History of esophageal surgery S/P tonsillectomy S/P LASIK surgery S/P sinus surgery Family History Unknown No problems noted. Social History Smoking and tobacco/nicotine status: former use of tobacco/nicotine Alcohol intake: never Substance/Drug Use: never Adopted: Yes (Biological mother's family has hx of hypertension) Data Anesthesia 06/01/24 11:44 06/01/24 11:44 Short CBC 06/01/24 Range/Units 11:44 WBC 4.07 (3.29-11.43) 10^3/uL Hgb 9.00 L (11.27-16.99) g/dL Hct 26.9 L (37-53) % MCV 89.7 (82-101) fl Plt Count 66 L (157-399) 10^3/cmm Neut % (Auto) 76.6 % Neut # (Auto) 3.12 (1.8-7.7) 10^3/uL BMP 06/01/24 11:44 Sodium 125 L Potassium 5.1 Chloride 94 L Carbon Dioxide 21 L BUN 58 H Creatinine 2.8 H Glucose 64 L Calcium 8.6 Cardiac Studies: Echocardiogram 04/27/24 Sestamibi Stress Test (Cardiology) 02/05/23
[2024-06-01] MEDS: lidocaine-epi 2% PF 1:200,000 20 mL SDV XX (13:34)
--- NOTE | 2024-06-01 13:35 | P.OP_ITS ---
Operative Report Date of procedure: June 01, 2024 Pre-op diagnosis: Cirrhosis secondary to liver cancer Post-op diagnosis: same Procedure done: Laparoscopic peritoneal drain placement Implants: Peritoneal drainage catheter Specimens removed/disposition: Peritoneal fluid Surgeon: Huey Leonard DO Anesthesia: General and Local Estimated blood loss (mL): 5 Complications: None apparent Brief History: This is a very pleasant 63-year-old gentleman with liver failure secondary to liver cancer. He is currently in hospice and requires frequent paracentesis. He desired peritoneal drainage catheter placement for drainage at home. The risks and benefits were explained and documented. Procedure: Patient was wheeled in the operative room and placed on the OR table in supine position. The abdomen was inspected prepped and draped in usual sterile fashion. A timeout was performed all present were in agreement. A Veress needle was placed in the left upper quadrant and intra-abdominal insufflation was brought to 15 mmHg. A 5 mm trocar was then placed into the site using Optiview. A second 5 mm trocar was placed in the left lower quadrant. An 8 mm trocar was then placed just left of the umbilicus and tunneled subcutaneously and then preperitoneal he down to the pelvis. This was done under direct visualization. A peritoneal dialysis catheter was then fed through this trocar down into the pelvis. Both cuffs were noted to be subcutaneously and pre peritoneum only. 4100 cc of thin yellow peritoneal fluid was suctioned through the catheter. 25 g of albumin was given IV. The catheter appeared in good working order. Ports were removed. A 2-0 Ethilon suture was used to suture the catheter in place. Skin was closed using 4-0 Monocryl in a subcutaneous fashion. Dermabond was applied. Patient tolerated the procedure well.
--- NOTE | 2024-06-01 15:30 | ANE.PACU2 ---
Inpatient post-anesthesia follow up: Airway intact: Yes Vital signs: Temperature 97.0 F Pulse Rate 83 Respiratory Rate 17 Blood Pressure 115/71 Pulse Oximetry 100 Oxygen Delivery Me thod Room Air Oxygen Flow Rate Fraction of Inspir ed Oxygen Hydration adequate: Yes Nausea and vomiting: No Pain level: 1 Mental status: Baseline
== END 2024-06-01 15:29 | disposition home or self-care (01) ==
PROVIDERS: Anesthesiology; Family Provider Internal Medicine Gastroenterology; PCP Nurse Practitioner Family; Visit Provider Surgery
PROC: 0WHG43Z Insertion of Infusion Device into Peritoneal Cavity, Percutaneous Endoscopic Approach (ICD-10-PCS; CPT 49324; principal; 2024-06-01 13:00)
DX: K74.60 Unspecified cirrhosis of liver (principal); C22.8 Malignant neoplasm of liver, primary, unspecified as to type; Z79.82 Long term (current) use of aspirin; E78.5 Hyperlipidemia, unspecified; E11.22 Type 2 diabetes mellitus with diabetic chronic kidney disease; N18.9 Chronic kidney disease, unspecified; Z87.891 Personal history of nicotine dependence
CPT/HCPCS: 49324; 36415; 80048; 85025; C1750; J0690; J1100; J2405; J2704; J3010; J3490; J7030; P9045